=== PATIENT | male | born 1950 | race Caucasian/White ===

== ENCOUNTER 2016-08-05 15:56 | Outpatient (CLI) | payer MEDICARE, OTHER | END 2016-08-05 15:57 | disposition home or self-care (01) | DX: R97.20 Elevated prostate specific antigen [PSA] (principal) ==

== ENCOUNTER 2017-02-22 10:32 | Outpatient (CLI) | payer MEDICARE, OTHER ==
[2017-02-22 18:22] LABS: PSA FREE 0.541 ng/mL (0.16-2.81)
[2017-02-22 18:23] LABS: PSA TOTAL 3.869 ng/mL (0.000-2.000)
== END 2017-02-22 10:33 | disposition home or self-care (01) ==
LOC: LAB.F 10:32
PROVIDERS: ATTEND Internal Medicine
DX: R97.20 Elevated prostate specific antigen [PSA] (principal)
CPT/HCPCS: 36415; 84154

== ENCOUNTER 2017-06-07 07:32 | Outpatient (CLI) | payer MEDICARE, OTHER ==
[2017-06-07 13:05] LABS: BILIRUBIN,URINE NEGATIVE (NEGATIVE); GLUCOSE, URINE (UA) NEGATIVE (NEGATIVE); KETONES,URINE (UA) NEGATIVE (NEGATIVE); LEUKOCYTE ESTERASE, URINE LARGE (NEGATIVE); NITRITE,URINE NEGATIVE (NEGATIVE); OCCULT BLOOD,URINE MODERATE (NEGATIVE); PH,URINE 6.5 PH (5.0-7.5); PROTEIN,URINE 100 mg/dL (NEGATIVE); UROBILINOGEN,URINE 0.2 (NORMAL) E.U./dL (NORMAL)
[2017-06-07 13:10] LABS: CLARITY,URINE CLOUDY (CLEAR)
[2017-06-07 13:34] LABS: BASOPHILS # (AUTO) 0.1 10^3/uL (0.0-0.1); EOSINOPHILS # (AUTO) 0.3 10^3/uL (0.0-0.7); EOSINOPHILS % (AUTO) 5.9 %; HGB - HEMOGLOBIN 14.6 g/dL (14.0-18.0); LYMPHOCYTES # (AUTO) 1.6 10^3/uL (1.5-3.5); LYMPHOCYTES % (AUTO) 29.5 %; MEAN CORPUSCULAR HEMOGLOBIN 30.1 pg (27.0-31.0); MEAN CORPUSCULAR HGB CONC 33.3 g/dL (32.0-36.0); MEAN CORPUSCULAR VOLUME 90.3 fL (80.0-94.0); MEAN PLATELET VOLUME 7.8 fL (7.4-11.4); MONOCYTES # (AUTO) 0.4 10^3/uL (0.0-1.0); MONOCYTES % (AUTO) 8.1 %; NEUTROPHILS # (AUTO) 3.1 10^3/uL (1.5-6.6); NEUTROPHILS % (AUTO) 55.5 %; PLT - PLATELET COUNT 282 10^3/uL (130-450); RED BLOOD COUNT 4.85 10^6/uL (4.70-6.10); RED CELL DISTRIBUTION WIDTH 13.4 % (12.0-15.0); WHITE BLOOD COUNT 5.5 x10^3/uL (4.8-10.8)
[2017-06-07 13:35] LABS: ALBUMIN 4.2 g/dL (3.2-5.5); ALBUMIN/GLOBULIN RATIO 1.3 (1.0-2.2); ALKALINE PHOSPHATASE 61 IU/L (42-121); ALT ALANINE AMINOTRANSFERASE 14 IU/L (10-60); AST ASPARTATE AMINOTRANSFERASE 17 IU/L (10-42); BILIRUBIN,TOTAL 0.7 mg/dL (0.2-1.0); BUN - BLOOD UREA NITROGEN 16 mg/dL (6-20); CALCIUM 8.6 mg/dL (8.5-10.3); CARBON DIOXIDE - CO2 28 mmol/L (21-32); CHLORIDE 104 mmol/L (101-111); CHOL/HDL RATIO 3.4 (<5.0); CHOLESTEROL 163 mg/dL; CREATININE 0.7 mg/dL (0.6-1.2); GFR - MDRD 112 (>89); GLUCOSE 99 mg/dL (70-100); HDL CHOLESTEROL 48 mg/dL; LDL CHOLESTEROL,CALCULATED 102 mg/dL; LDL/HDL RATIO 2.1 (<3.6); SODIUM 137 mmol/L (135-145); TOTAL PROTEIN 7.4 g/dL (6.7-8.2); VLDL CHOLESTEROL 13 mg/dL
[2017-06-07 13:54] LABS: BACTERIA,URINE Moderate /HPF (None Seen); SQUAMOUS EPITHELIAL CELL,UR NONE SEEN (<= Few)
== END 2017-06-07 07:33 | disposition home or self-care (01) ==
LOC: LAB.F 07:32
PROVIDERS: ATTEND Internal Medicine
DX: E78.5 Hyperlipidemia, unspecified (principal); Z79.899 Other long term (current) drug therapy; C18.9 Malignant neoplasm of colon, unspecified; R30.0 Dysuria
CPT/HCPCS: 36415; 80053; 80061; 81001; 81003; 82378; 84443; 85025; 87086

== ENCOUNTER 2017-07-01 10:10 | Outpatient (CLI) | payer MEDICARE, OTHER | END 2017-07-01 10:11 | disposition home or self-care (01) | LOC: LAB.F 10:10 | PROVIDERS: ATTEND Internal Medicine | DX: N30.00 Acute cystitis without hematuria (principal) | CPT/HCPCS: 87086 ==

== ENCOUNTER 2017-08-25 07:23 | Outpatient (CLI) | payer MEDICARE, OTHER ==
[2017-08-25 10:54] LABS: PSA FREE 0.64 ng/mL (0.16-2.81)
[2017-08-25 10:55] LABS: PSA TOTAL 3.63 ng/mL (0.000-2.000)
== END 2017-08-25 07:24 | disposition home or self-care (01) ==
LOC: LAB.F 07:23
PROVIDERS: ATTEND Internal Medicine
DX: Z12.5 Encounter for screening for malignant neoplasm of prostate (principal); E05.90 Thyrotoxicosis, unspecified without thyrotoxic crisis or storm; R97.20 Elevated prostate specific antigen [PSA]
CPT/HCPCS: 36415; 84153; 84154; 84443

== ENCOUNTER 2018-06-30 08:55 | Outpatient (CLI) | payer MEDICARE, OTHER ==
[2018-06-30 16:31] LABS: BASOPHILS # (AUTO) 0.1 10^3/uL (0.0-0.1); BASOPHILS % (AUTO) 0.9 %; EOSINOPHILS # (AUTO) 0.2 10^3/uL (0.0-0.7); EOSINOPHILS % (AUTO) 3.7 %; HGB - HEMOGLOBIN 15.3 g/dL (14.0-18.0); LYMPHOCYTES # (AUTO) 1.6 10^3/uL (1.5-3.5); MEAN CORPUSCULAR HEMOGLOBIN 30.3 pg (27.0-31.0); MEAN CORPUSCULAR HGB CONC 33.1 g/dL (32.0-36.0); MEAN CORPUSCULAR VOLUME 91.6 fL (80.0-94.0); MEAN PLATELET VOLUME 7.8 fL (7.4-11.4); MONOCYTES # (AUTO) 0.4 10^3/uL (0.0-1.0); MONOCYTES % (AUTO) 6.5 %; NEUTROPHILS # (AUTO) 3.5 10^3/uL (1.5-6.6); NEUTROPHILS % (AUTO) 60.9 %; PLT - PLATELET COUNT 276 10^3/uL (130-450); RED BLOOD COUNT 5.04 10^6/uL (4.70-6.10); RED CELL DISTRIBUTION WIDTH 13.4 % (12.0-15.0); WHITE BLOOD COUNT 5.7 x10^3/uL (4.8-10.8)
[2018-06-30 16:49] LABS: ALBUMIN 4.2 g/dL (3.2-5.5); ALBUMIN/GLOBULIN RATIO 1.2 (1.0-2.2); ALKALINE PHOSPHATASE 76 IU/L (42-121); ALT ALANINE AMINOTRANSFERASE 14 IU/L (10-60); AST ASPARTATE AMINOTRANSFERASE 18 IU/L (10-42); BILIRUBIN,TOTAL 1.2 mg/dL (0.2-1.0); BUN - BLOOD UREA NITROGEN 15 mg/dL (6-20); CALCIUM 9.1 mg/dL (8.5-10.3); CARBON DIOXIDE - CO2 28 mmol/L (21-32); CHLORIDE 101 mmol/L (101-111); CHOL/HDL RATIO 4.2 (<5.0); CHOLESTEROL 225 mg/dL; CREATININE 0.7 mg/dL (0.6-1.2); GFR - MDRD 112 (>89); GLUCOSE 95 mg/dL (70-100); HDL CHOLESTEROL 53 mg/dL; LDL CHOLESTEROL,CALCULATED 152 mg/dL; LDL/HDL RATIO 2.9 (<3.6); SODIUM 138 mmol/L (135-145); TOTAL PROTEIN 7.8 g/dL (6.7-8.2); VLDL CHOLESTEROL 20 mg/dL
[2018-06-30 16:54] LABS: PSA FREE 0.677 ng/mL (0.16-2.81)
[2018-06-30 16:55] LABS: PSA TOTAL 3.994 ng/mL (0.000-2.000)
== END 2018-06-30 08:56 | disposition home or self-care (01) ==
LOC: LAB.F 08:55
PROVIDERS: ATTEND Internal Medicine
DX: E05.90 Thyrotoxicosis, unspecified without thyrotoxic crisis or storm (principal); E78.5 Hyperlipidemia, unspecified; R97.20 Elevated prostate specific antigen [PSA]; N20.0 Calculus of kidney; M19.90 Unspecified osteoarthritis, unspecified site
CPT/HCPCS: 36415; 80053; 80061; 83721; 84153; 84154; 84443; 85025

== ENCOUNTER 2019-07-16 08:32 | Outpatient (CLI) | payer MEDICARE, OTHER ==
[2019-07-16 10:14] LABS: HGB - HEMOGLOBIN 14.6 g/dL (14.0-18.0); MEAN CORPUSCULAR HEMOGLOBIN 29.3 pg (27.0-31.0); MEAN CORPUSCULAR HGB CONC 31.9 g/dL (32.0-36.0); MEAN CORPUSCULAR VOLUME 91.8 fL (80.0-94.0); MEAN PLATELET VOLUME 9.1 fL (7.4-11.4); RED BLOOD COUNT 4.98 10^6/uL (4.70-6.10); RED CELL DISTRIBUTION WIDTH 13.5 % (12.0-15.0); WHITE BLOOD COUNT 11.3 x10^3/uL (4.8-10.8)
[2019-07-16 10:47] LABS: ALBUMIN 3.9 g/dL (3.2-5.5); ALBUMIN/GLOBULIN RATIO 0.9 (1.0-2.2); ALKALINE PHOSPHATASE 58 IU/L (42-121); ALT ALANINE AMINOTRANSFERASE 15 IU/L (10-60); AST ASPARTATE AMINOTRANSFERASE 16 IU/L (10-42); BILIRUBIN,TOTAL 0.9 mg/dL (0.2-1.0); BUN - BLOOD UREA NITROGEN 17 mg/dL (6-20); CALCIUM 8.9 mg/dL (8.5-10.3); CARBON DIOXIDE - CO2 26 mmol/L (21-32); CHLORIDE 104 mmol/L (101-111); CHOL/HDL RATIO 3.5 (<5.0); CHOLESTEROL 184 mg/dL; CREATININE 0.7 mg/dL (0.6-1.2); CRP - C-REACTIVE PROTEIN 9.8 mg/dL (0-1.0); GFR - MDRD 112 (>89); GLUCOSE 103 mg/dL (70-100); HDL CHOLESTEROL 52 mg/dL; LDL CHOLESTEROL,CALCULATED 116 mg/dL; LDL/HDL RATIO 2.2 (<3.6); SODIUM 140 mmol/L (135-145); TOTAL PROTEIN 8.1 g/dL (6.7-8.2); VLDL CHOLESTEROL 16 mg/dL
[2019-07-16 10:50] LABS: PSA FREE 0.58 ng/mL (0.16-2.81); PSA TOTAL 2.91 ng/mL (0.000-2.000)
== END 2019-07-16 08:33 | disposition home or self-care (01) ==
LOC: LAB.S 08:32
PROVIDERS: ATTEND Internal Medicine
DX: E78.5 Hyperlipidemia, unspecified (principal); Z12.5 Encounter for screening for malignant neoplasm of prostate; M25.50 Pain in unspecified joint
CPT/HCPCS: 36415; 80053; 80061; 83721; 84153; 84154; 84550; 85027; 85651; 86038; 86140; 86200

== ENCOUNTER 2019-07-25 09:49 | Outpatient (CLI) | payer MEDICARE, OTHER ==
[2019-07-25 17:21] LABS: HGB - HEMOGLOBIN 13.4 g/dL (14.0-18.0); MEAN CORPUSCULAR HEMOGLOBIN 28.3 pg (27.0-31.0); MEAN CORPUSCULAR VOLUME 91.1 fL (80.0-94.0); MEAN PLATELET VOLUME 9.6 fL (7.4-11.4); RED BLOOD COUNT 4.74 10^6/uL (4.70-6.10); RED CELL DISTRIBUTION WIDTH 12.8 % (12.0-15.0); WHITE BLOOD COUNT 8.2 x10^3/uL (4.8-10.8)
[2019-07-25 18:14] LABS: RHEUMATOID FACTOR NEGATIVE (Negative)
== END 2019-07-25 09:50 | disposition home or self-care (01) ==
LOC: LAB.S 09:49
PROVIDERS: ATTEND Internal Medicine
DX: M25.50 Pain in unspecified joint (principal)
CPT/HCPCS: 36415; 85027; 85651; 86038; 86140; 86200; 86430

== ENCOUNTER 2019-09-20 09:46 | Outpatient (CLI) | payer MEDICARE, OTHER | END 2019-09-20 09:47 | disposition home or self-care (01) | LOC: LAB 09:46 | PROVIDERS: ATTEND Internal Medicine | DX: M35.3 Polymyalgia rheumatica (principal) | CPT/HCPCS: 36415; 85651 ==

== ENCOUNTER 2019-10-23 09:48 | Outpatient (CLI) | payer MEDICARE, OTHER | END 2019-10-23 09:49 | disposition home or self-care (01) | LOC: LAB 09:48 | PROVIDERS: ATTEND Internal Medicine | DX: M35.3 Polymyalgia rheumatica (principal) | CPT/HCPCS: 36415; 85651 ==

== ENCOUNTER 2019-12-11 09:06 | Outpatient (CLI) | payer MEDICARE, OTHER | END 2019-12-11 09:07 | disposition home or self-care (01) | LOC: LAB.S 09:06 | PROVIDERS: ATTEND Internal Medicine | DX: M35.3 Polymyalgia rheumatica (principal) | CPT/HCPCS: 36415; 85651 ==

== ENCOUNTER 2020-02-14 10:31 | Outpatient (CLI) | payer MEDICARE, OTHER | END 2020-02-14 10:32 | disposition home or self-care (01) | LOC: LAB.S 10:31 | PROVIDERS: ATTEND Internal Medicine | DX: M35.3 Polymyalgia rheumatica (principal) | CPT/HCPCS: 36415; 85651 ==

== ENCOUNTER 2020-08-12 09:15 | Outpatient (CLI) | payer MEDICARE, OTHER ==
[2020-08-12 15:11] LABS: BASOPHILS % (AUTO) 0.6 %; EOSINOPHILS # (AUTO) 0.2 10^3/uL (0.0-0.7); EOSINOPHILS % (AUTO) 2.9 %; HCT - HEMATOCRIT 46.5 % (42.0-52.0); HGB - HEMOGLOBIN 14.7 g/dL (14.0-18.0); LYMPHOCYTES # (AUTO) 1.6 10^3/uL (1.5-3.5); LYMPHOCYTES % (AUTO) 23.7 %; MEAN CORPUSCULAR HEMOGLOBIN 29.9 pg (27.0-31.0); MEAN CORPUSCULAR HGB CONC 31.6 g/dL (32.0-36.0); MEAN CORPUSCULAR VOLUME 94.5 fL (80.0-94.0); MONOCYTES # (AUTO) 0.3 10^3/uL (0.0-1.0); MONOCYTES % (AUTO) 4.7 %; NEUTROPHILS # (AUTO) 4.6 10^3/uL (1.5-6.6); NEUTROPHILS % (AUTO) 67.8 %; PLT - PLATELET COUNT 386 10^3/uL (130-450); RED BLOOD COUNT 4.92 10^6/uL (4.70-6.10); RED CELL DISTRIBUTION WIDTH 13.3 % (12.0-15.0); WHITE BLOOD COUNT 6.8 x10^3/uL (4.8-10.8)
[2020-08-12 15:51] LABS: ALBUMIN 4.3 g/dL (3.2-5.5); ALBUMIN/GLOBULIN RATIO 1.2 (1.0-2.2); ALKALINE PHOSPHATASE 60 IU/L (42-121); ALT ALANINE AMINOTRANSFERASE 16 IU/L (10-60); AST ASPARTATE AMINOTRANSFERASE 19 IU/L (10-42); BILIRUBIN,TOTAL 0.4 mg/dL (0.2-1.0); BUN - BLOOD UREA NITROGEN 17 mg/dL (6-20); CALCIUM 9.1 mg/dL (8.5-10.3); CARBON DIOXIDE - CO2 27 mmol/L (21-32); CHLORIDE 103 mmol/L (101-111); CHOL/HDL RATIO 4.2 (<5.0); CHOLESTEROL 213 mg/dL; CREATININE 0.8 mg/dL (0.6-1.2); GFR - MDRD 96 (>89); GLUCOSE 104 mg/dL (70-100); HDL CHOLESTEROL 51 mg/dL; LDL CHOLESTEROL,CALCULATED 140 mg/dL; LDL/HDL RATIO 2.7 (<3.6); POTASSIUM 4.2 mmol/L (3.5-5.0); SODIUM 136 mmol/L (135-145); TOTAL PROTEIN 7.9 g/dL (6.7-8.2); TRIGLYCERIDES 110 mg/dL; VLDL CHOLESTEROL 22 mg/dL
== END 2020-08-12 09:16 | disposition home or self-care (01) ==
LOC: LAB.S 09:15
PROVIDERS: ATTEND Internal Medicine
DX: M25.50 Pain in unspecified joint (principal); E78.5 Hyperlipidemia, unspecified; I10 Essential (primary) hypertension; R97.20 Elevated prostate specific antigen [PSA]
CPT/HCPCS: 36415; 80053; 80061; 85025; G0103; 83721; 84153

== ENCOUNTER 2020-09-01 07:00 | Outpatient (CLI) | payer MEDICARE, OTHER ==
--- NOTE | 2020-09-01 16:22 | XRAY Report ---
PROCEDURE: Knee 4 View RT INDICATIONS: R KNEE JOINT PX TECHNIQUE: 4 views of the right knee(s) were acquired. COMPARISON: None. FINDINGS: Bones: No fractures or dislocations. No suspicious bony lesions. There is moderate to severe trico mpartmental narrowing most severe laterally. Chondrocalcinosis is present. Patellar spur is present. Soft tissues: Moderate joint effusion. No suspicious soft tissue calcifications. IMPRESSION: Tricompartmental arthritic change as above. Reviewed by: Fela Jenkins MD on 09/01/2020 4:21 PM PDT Approved by: Fela Jenkins MD on 09/01/2020 4:21 PM PDT Station ID: [id number]
== END 2020-09-01 23:59 | disposition home or self-care (01) ==
LOC: DI.N 07:00
PROVIDERS: ATTEND Physician Assistant
DX: M17.11 Unilateral primary osteoarthritis, right knee (principal)

== ENCOUNTER 2020-10-31 06:23 | Day surgery (SDC) | payer MEDICARE, OTHER ==
[2020-10-31] MEDS ORDERED: LACTATED RINGERS 1,000 ML IV ONE (06:29)
[2020-10-31] MEDS ORDERED: fentaNYL 100 MCG/2 ML VIAL ONE (06:46)
[2020-10-31] MEDS ORDERED: MIDAZOLAM 2 MG/2 ML VIAL ONE (06:48)
[2020-10-31] MEDS ORDERED: PROPOFOL 200 MG/20 ML VIAL IVP ONE (06:49)
--- NOTE | 2020-10-31 07:02 | ANESTHESIA ---
Pre-Anesthesia VS, & Labs - Diagnosis screening - Procedure colonoscopy Vital Signs: Temp Pulse Resp BP Pulse Ox 36 C L 65 16 138/84 H 100 10/31/20 06:29 10/31/20 06:29 10/31/20 06:29 10/31/20 06:29 10/31/20 06:29 Height: 6 ft Weight (kg): 89.3 kg Body Mass Index: 26.6 BMI Classification: Overweight - NPO >8 hours Home Medications and Allergies Home Medications: Ambulatory Orders Prednisone [Anna] 1 mg PO DAILY 10/31/20 Ascorbic Acid [Vitamin C] 1 tab PO DAILY 10/01/15 Magnesium 1 tab PO DAILY 10/01/15 Prednisone [Anna] 1 mg PO DAILY 10/31/20 Allergies/Adverse Reactions: Allergies Allergy/AdvReac Type Severity Reaction Status Date / Time bacitracin Allergy Mild Rash Verified 09/17/15 09:14 [From Neosporin ([id number])] bacitracin zinc * Allergy Mild Rash Verified 09/17/15 09:14 [From Neosporin ([id number]-gin-rowao)] neomycin sulfate * Allergy Mild Rash Verified 09/17/15 09:14 [From Neosporin (uyi-ufg-wwnzt)] polymyxin B Allergy Mild Rash Verified 09/17/15 09:14 [From Neosporin ([id number]-mrj-cfgvf)] Anes History & Medical History - Anesthetic History Anesthesia Complications: reports: No previous complications Family history of Anesthesia Complications: Denies Family history of Malignant Hyperthermia: Denies - Medical History Cardiovascular: reports: None Pulmonary: reports: None Gastrointestinal: reports: None Urinary: reports: Kidney stones Musculoskeletal: reports: None Endocrine/Autoimmune: reports: None Skin: reports: None - Surgical History Urologic: reports: Ureterolithotomy (stones) Exam General: Alert, Oriented x3, Cooperative Dental: WNL Mouth Openin Fingerbreadth Neck Mobility: Normal Mallampati classification: II Thyromental Distance: 4-6 cm Respiratory: Lungs clear, Normal breath sounds, No respiratory distress Cardiovascular: Regular rate Neurological: Normal speech Mental/Cognitive Status: Alert/Oriented X3, Normal for patient Cognitive Status: Within normal limits Plan Anesthesia Type: Total IV Consent for Procedure(s) Verified and Reviewed: Yes Code Status: Attempt Resuscitation ASA classification: 2-Mild systemic disease Is this case an emergency?: No
--- NOTE | 2020-10-31 07:19 | HISTORY & PHYSICAL EXAMINATION ---
Chief Complaint - Chief Complaint Chief Complaint: history colon polyps History of Present Illness - History Obtained From Records Reviewed: yes History obtained from: pt Exam Limitations: none - History of Present Illness HPI Comment/Other: History of colon polyps. last colonoscopy about 8 years ago History - Past Medical History Cardiovascular: reports: None Respiratory: reports: None Endocrine/Autoimmune: reports: None GI: reports: None : reports: Kidney stones HEENT: reports: None Psych: reports: None Musculoskeletal: reports: None Derm: reports: None MRSA Hx?: No Meds/Allgy - Home Medications Home Medications: Ambulatory Orders Medication Instructions Recorded Confirmed Ascorbic Acid [Vitamin C] 1 tab PO DAILY 10/01/15 10/31/20 Magnesium 1 tab PO DAILY 10/01/15 10/31/20 Prednisone [Anna] 1 mg PO DAILY 10/31/20 10/31/20 - Allergies Allergies/Adverse Reactions: Allergies Allergy/AdvReac Type Severity Reaction Status Date / Time bacitracin Allergy Mild Rash Verified 09/17/15 09:14 [From Neosporin (yms-[id number]-[id number])] bacitracin zinc * Allergy Mild Rash Verified 09/17/15 09:14 [From Neosporin ([id number]-ybw-[id number])] neomycin sulfate * Allergy Mild Rash Verified 09/17/15 09:14 [From Neosporin (lbh-bru-lezvz)] polymyxin B Allergy Mild Rash Verified 09/17/15 09:14 [From Neosporin (nir-adh-xlijf)] Review of Systems - Other Findings Other Findings: 10 pt ros as above otherwise unremarkable Exam - Vital Signs Reviewed Vital Signs: Yes Vital Signs: Vital Signs x48h Temp Pulse Resp BP Pulse Ox 10/31/20 06:29 36 C L 65 16 138/84 H 100 - Physical Exam General Appearance: positive: Alert Eyes Bilateral: positive: PERRL, EOMI ENT: positive: No signs of dehydration Neck: positive: No JVD Respiratory: positive: No respiratory distress, Breath sounds nml Cardiovascular: positive: Regular rate & rhythm Abdomen: positive: Non-tender, No distention Neurologic/Psychiatric: positive: Oriented x3 Conclusion/Plan - Problem List (1) History of adenomatous polyp of colon Conclusion/Plan: plan colonoscopy. parq held and consent obtained
[2020-10-31] MEDS ORDERED: LACTATED RINGERS 350 ML IV ONE (07:54)
[2020-10-31 08:26] VITALS: BP 127/95
--- NOTE | 2020-10-31 08:39 | ANESTHESIA POST OP EVALUATION ---
Anesthesia Post Eval - Post Anesthesia Eval Vitals: Last Vital Signs Temp 36.5 C 10/31/20 08:15 Pulse 69 10/31/20 08:15 Resp 16 10/31/20 08:15 BP 127/95 H 10/31/20 08:15 Pulse Ox 99 10/31/20 08:15 CV Function Including HR & BP: Stable Pain Control: Satisfactory Nausea & Vomiting: Negative Mental Status: Baseline Respiratory Status: Airway Patent Hydration Status: Satisfactory Anesthesia Complications: None
== END 2020-10-31 06:24 | disposition home or self-care (01) ==
LOC: SDS 06:23
PROVIDERS: ATTEND Surgery
PROC: 0DBP8ZX Excision of Rectum, Via Natural or Artificial Opening Endoscopic, Diagnostic (ICD-10-PCS; principal; 2020-10-31 07:30)
DX: Z12.11 Encounter for screening for malignant neoplasm of colon (principal); K62.1 Rectal polyp; E66.3 Overweight; Z68.26 Body mass index [BMI] 26.0-26.9, adult
CPT/HCPCS: 45380; J7120

== ENCOUNTER 2021-01-16 08:05 | Outpatient (CLI) | payer MEDICARE, OTHER | END 2021-01-16 08:06 | disposition home or self-care (01) | LOC: LAB.S 08:05 | PROVIDERS: ATTEND Internal Medicine | DX: R97.20 Elevated prostate specific antigen [PSA] (principal) | CPT/HCPCS: 36415; 84153 ==

== ENCOUNTER 2021-02-24 10:28 | Outpatient (CLI) | payer MEDICARE, OTHER ==
[2021-02-24 14:52] LABS: BASOPHILS # (AUTO) 0.1 10^3/uL (0.0-0.1); BASOPHILS % (AUTO) 0.8 %; EOSINOPHILS # (AUTO) 0.2 10^3/uL (0.0-0.7); EOSINOPHILS % (AUTO) 3.2 %; HCT - HEMATOCRIT 44.7 % (42.0-52.0); HGB - HEMOGLOBIN 14.3 g/dL (14.0-18.0); MEAN CORPUSCULAR HEMOGLOBIN 29.8 pg (27.0-31.0); MEAN CORPUSCULAR VOLUME 93.1 fL (80.0-94.0); MEAN PLATELET VOLUME 9.2 fL (7.4-11.4); MONOCYTES # (AUTO) 0.4 10^3/uL (0.0-1.0); MONOCYTES % (AUTO) 5.8 %; NEUTROPHILS # (AUTO) 3.4 10^3/uL (1.5-6.6); NEUTROPHILS % (AUTO) 55.9 %; PLT - PLATELET COUNT 379 10^3/uL (130-450); RED CELL DISTRIBUTION WIDTH 13.4 % (12.0-15.0)
[2021-02-24 15:13] LABS: ALBUMIN 4.3 g/dL (3.2-5.5); ALBUMIN/GLOBULIN RATIO 1.1 (1.0-2.2); BILIRUBIN,TOTAL 0.5 mg/dL (0.2-1.0); CALCIUM 9.2 mg/dL (8.5-10.3); CREATININE 0.9 mg/dL (0.6-1.2); TOTAL PROTEIN 8.1 g/dL (6.7-8.2)
[2021-02-24 15:22] LABS: CREATININE,URINE 108.3 mg/dL; MICROALBUMIN,URINE 18.3 mg/dL (0-300.0)
[2021-02-24 20:25] LABS: ESTIMATED AVERAGE GLUCOSE 105 mg/dL (70-100); HEMOGLOBIN A1c% 5.3 % (4.27-6.07)
== END 2021-02-24 10:29 | disposition home or self-care (01) ==
LOC: LAB.S 10:28
PROVIDERS: ATTEND Internal Medicine
DX: Z01.812 Encounter for preprocedural laboratory examination (principal)
CPT/HCPCS: 36415; 80053; 82043; 82570; 83036; 85025

== ENCOUNTER 2021-02-27 08:00 | Outpatient (CLI) | payer MEDICARE, OTHER | END 2021-02-27 23:59 | disposition home or self-care (01) | LOC: LAB.F 08:00 | PROVIDERS: ATTEND Internal Medicine | DX: Z53.9 Procedure and treatment not carried out, unspecified reason (principal) ==

== ENCOUNTER 2021-03-18 09:48 | Day surgery (SDC) | payer MEDICARE, OTHER ==
[2021-03-18] MEDS ORDERED: ACETAMINOPHEN 500 MG TABLET PO ONE (09:56)
[2021-03-18] MEDS ORDERED: CELECOXIB 100 MG CAPSULE PO ONE (09:57)
[2021-03-18] MEDS ORDERED: CEFAZOLIN SODIUM IN 0.9 % NACL 2 GM/100 ML BAG IV ONE (09:57)
[2021-03-18] MEDS ORDERED: DEXAMETHASONE 10 MG/ML VIAL ONE (09:57)
[2021-03-18] MEDS ORDERED: BUPIVACAINE 0.25% PF 30 ML VIAL ONE (11:12)
[2021-03-18] MEDS ORDERED: KETOROLAC 30 MG/ML VIAL ONE (11:12)
[2021-03-18] MEDS ORDERED: VANCOMYCIN 1 GM VIAL ONE (11:12)
[2021-03-18] MEDS ORDERED: LIDOCAINE 2%-EPI 1:100000 20 ML MDV ONE (11:12)
[2021-03-18] MEDS ORDERED: DOCUSATE SODIUM 100 MG CAPSULE PO PRN (11:28)
[2021-03-18] MEDS ORDERED: MORPHINE 2 MG/ML CARPUJECT IVP PRN ×2 (11:28→12:01)
[2021-03-18] MEDS ORDERED: SODIUM CHLORIDE FLUSH 0.9% 10 ML SYRINGE IVP PRN (11:28)
[2021-03-18] MEDS ORDERED: ONDANSETRON 4 MG/2 ML VIAL IVP PRN ×2 (11:28→12:01)
[2021-03-18] MEDS ORDERED: LIDOCAINE-MPF 2% 5 ML VIAL ONE (11:33)
[2021-03-18] MEDS ORDERED: TRANEXAMIC ACID 1,000 MG/10 ML VIAL ONE (11:33)
[2021-03-18] MEDS ORDERED: ONDANSETRON 4 MG/2 ML VIAL ONE (11:33)
[2021-03-18] MEDS ORDERED: MIDAZOLAM 2 MG/2 ML VIAL ONE (11:34)
[2021-03-18] MEDS ORDERED: PROPOFOL 500 MG/50 ML 500 MG/50 ML VIAL ONE ×2 (11:34→13:05)
[2021-03-18] MEDS ORDERED: BUPIVACAINE 0.5% PF 10 ML VIAL ONE (11:34)
[2021-03-18] MEDS ORDERED: fentaNYL 100 MCG/2 ML VIAL ONE (11:34)
[2021-03-18] MEDS ORDERED: NS W/20 MEQ KCL 1,000 ML IV SCH (12:00)
[2021-03-18] MEDS ORDERED: NALOXONE 0.4 MG/ML VIAL IVP PRN (12:01)
[2021-03-18] MEDS ORDERED: fentaNYL 100 MCG/2 ML VIAL IVP PRN (12:01)
[2021-03-18] MEDS ORDERED: HYDROmorphone 0.5 MG/0.5 ML SYRINGE IVP PRN (12:01)
[2021-03-18] MEDS ORDERED: ePHEDrine 50 MG/ML VIAL IVP PRN (12:01)
[2021-03-18] MEDS ORDERED: ATROPINE ABBOJECT 1 MG/10 ML SYRINGE IVP PRN (12:01)
[2021-03-18] MEDS ORDERED: METOCLOPRAMIDE 10 MG/2 ML VIAL IVP PRN (12:01)
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
[2021-03-18] MEDS ORDERED: LACTATED RINGERS 1,000 ML IV SCH (13:00)
[2021-03-18] MEDS ORDERED: VANCOMYCIN 1 GM VIAL MC ONE (13:01)
[2021-03-18] MEDS ORDERED: BUPIVACAINE 0.25% PF 30 ML VIAL SUBQ ONE (13:02)
[2021-03-18] MEDS ORDERED: KETOROLAC 30 MG/ML VIAL IVP ONE (13:02)
[2021-03-18] MEDS ORDERED: LIDOCAINE 2%-EPI 1:100000 20 ML MDV SUBQ ONE (13:05)
[2021-03-18] MEDS ORDERED: DEXAMETHASONE 4 MG/ML VIAL ONE (13:38)
[2021-03-18] MEDS ORDERED: ROPIVACAINE 0.5% PF 20 ML AMPULE ONE ×2 (13:38→13:42)
[2021-03-18] MEDS ORDERED: ceFAZolin 2 GM in SODIUM CHLORIDE 0.9% 100ML 100 ML IV SCH (14:00)
[2021-03-18] MEDS ORDERED: PROPOFOL 200 MG/20 ML VIAL IVP ONE ×2 (14:43→15:07)
--- NOTE | 2021-03-18 15:06 | OPERATIVE REPORT ---
Operative Report - General Procedure Date: 03/18/21 Planned Procedure: right total knee arthroplasty Pre-Op Diagnosis: Valgus osteoarthritis right knee Procedure Performed: Right total knee replacement: [employer] by cruciate stabilized journey 2 Oxinium #6 femoral component, #7 nonporous tibial baseplate, 9 mm articular insert, 32 mm Meme II biconvex patellar component with cement to all components Post Op Diagnosis: Right total knee replacement: [employer] by cruciate stabilized journey - Procedure Note Primary Surgeon: Renato Linton MD Secondary Surgeon: Bjorn BUTLER Anesthesia Provider: Juliana Ac CRNA Anesthesia Technique: Regional block, Spinal Estimated Blood Loss (mL): 250 Indications: This is a 71-year-old gentleman with activity related pain right knee interfering with activities of daily living AndespeciallyActivities that he enjoys. He has global pain but greatest over the lateral aspect of his right knee. He has tried nonoperative treatment and has had progressive knee pain. His radiographs show complete loss of joint space to lateral compartment with osteophytes, sclerosis. Findings: He had eburnated bone surfaces to lateral compartment, mild articular cartilage loss to medial compartment, moderate articular cartilage loss to patella. He had a nonspecific synovitis within the knee joint.He had a valgus deformity to his right knee. Complications: None - Other Other Information/Narrative: The patient was brought to the operating room and was placed in a supine position. She was given a adductor canal block by anesthesia. A pneumatic tourniquet was applied to the proximal right thigh over cast padding. This was a conical shaped Jaswinder thigh tourniquet that was sterile. An adjustable leg h older, Arthrex trimano,was placed on the operating room table to facilitate knee flexion of the right knee during surgery. A timeout procedure was performed by the entire operating room team and all were in agreement. A midline longitudinal incision was made with the knee in flexion. A medial parapatellar arthrotomy was made. The anterior horn of medial and lateral menisci were released and part of patellar fat pad was excised. The knee was flexed and the patella was dislocated laterally. A drill hole was made in the intramedullary notch with a 9.5 mm drill. Osteophytes about the proximal tibia and femur had been removed with a rongeur. The distal femoral cutting guide was aligned parallel to the posterior condyles. The intramedullary daniel and guide was advanced and the distal femoral guide was stabilized with half pins. The distal 5 degrees valgus cut was made through the distal femoral guide. Next the extra medullary tibial guide was assembled and applied and aligned to the mechanical axis in both sagittal and coronal planes. Tibial referencing was done to allow 2 mm of bone from the most affected side and 9 mm from the least affected side. The tibial guide was stabilized with half pins. Retractors were placed medially and laterally to protect the collateral ligaments and a retractor was placed directly against the posterior bone to sublux the tibia anteriorly. A [employer] precision 8 saw was used to make the tibial proximal cut. The tibial block was removed as a single piece and the menisci were removed as well. The extension gap was assessed with a extension block spacer using a 10 mm spacer and this was found to fit well as well as the 9 mm spacer block with the knee in 90 degrees of flexion. Next the femoral positioning guide was applied and aligned to the epicondylar axis and Bran line. This was secured in place with approximately 4 degrees of external rotation. The size of the femur at the anterior lateral trochlea was a #5. Drill holes were made in the 5 and 1 #6 cutting block was inserted and secured. The 5 cuts were made to the captured block using oscillating saw. The femoral trial was applied, fit very well,. The intercondylar notch was removed with reamers and box osteotome.The flexion gap was assessed with the 10 mm spacer and was found to fit well. The patella was then prepared. A 26 mm biconvex patellar reamer was used. The tibial trial #7 was then applied to the tibia and aligned to the mechanical axis. The drill and punch fin was utilized. Trial reduction was performed with the femoral and tibial components in place. Pulsatile lavage was performed. A tourniquet was applied during the cementing process. The components were inserted sequentially: Tibia, femur and lastly patellar component. Drill holes were made in medial lateral femoral condyles to the trial. Excess cement was removed and the knee was placed in extension during the hardening. Dilute Betadine irrigation was performed. The knee had full range of motion, good patellar tracking. There was good stability of the knee in full extension mid flexion and 90 degrees of flexion. There was good alignment of the right knee. The tourniquet had been deflated and had been in place for 30 minutes. Hemostasis was achieved with electrocautery. Vancomycin powder 2 g were inserted in the arthrotomy prior to deep closure. The deep closure was performed with #2 Ethibond proximal and distal to the patella with the knee in 40 degrees of flexion. #1 stratofix suture was then used to close the arthrotomy incision. 2-0 Stratofix was used to close the subcutaneous tissue. 3-0 Monocryl was used to do a subcuticular skin closure. Dermabond was applied to the skin incision. After the Dermabond had hardened, a silver impregnated dressing was applied. She tolerated the procedure well and received 2 g of Ancef intravenously and 2 g of tranexamic acid. A assistant professor of physics was utilized during the procedure and was found to be necessary component to help with exposure, protection of vital structures and closure. Second environmental emergencies assistant, Bjorn Asif PA-C also was available to provide retraction exposure.
[2021-03-18] MEDS ORDERED: LACTATED RINGERS 1,000 ML IV ONE (15:45)
--- NOTE | 2021-03-18 16:14 | ANESTHESIA POST OP EVALUATION ---
Anesthesia Post Eval - Post Anesthesia Eval Vitals: Last Vital Signs Temp 36.5 C 03/18/21 16:11 Pulse 69 03/18/21 16:11 Resp 14 03/18/21 16:11 BP 130/83 H 03/18/21 16:11 Pulse Ox 100 03/18/21 16:11 CV Function Including HR & BP: Stable Pain Control: Satisfactory Nausea & Vomiting: Negative Mental Status: Baseline Respiratory Status: Airway Patent Hydration Status: Satisfactory Anesthesia Complications: None
--- NOTE | 2021-03-18 16:18 | XRAY Report ---
PROCEDURE: Knee 2 View RT INDICATIONS: Postop TECHNIQUE: 2 views of the right knee(s) were acquired. COMPARISON: September 01, 2020. FINDINGS: BONES/JOINT: No acute, displaced fracture or dislocation. Tricompartment arthroplasty without evidenc e of compromise. SOFT TISSUES: Postoperative changes, most prominent in the patellofemoral compartment. IMPRESSION: 1.No significant abnormality. Reviewed by: Aaron Michelle MD on 03/18/2021 4:16 PM PDT Approved by: Aaron Michelle MD on 03/18/2021 4:16 PM PDT Station ID: [id number]
[2021-03-18] MEDS: ACETAMINOPHEN 500 MG TABLET PO SCH ×2 (17:04→18:25)
[2021-03-18] MEDS: CEFAZOLIN SODIUM IN 0.9 % NACL 2 GM/100 ML BAG IV SCH (17:14)
[2021-03-18] MEDS: SODIUM CHLORIDE FLUSH 0.9% 10 ML SYRINGE IVP SCH (17:14)
[2021-03-18 17:18] LABS: BASOPHILS % (AUTO) 0.3 %; EOSINOPHILS % (AUTO) 0.1 %; HCT - HEMATOCRIT 41.3 % (42.0-52.0); HGB - HEMOGLOBIN 13.5 g/dL (14.0-18.0); LYMPHOCYTES # (AUTO) 0.5 10^3/uL (1.5-3.5); LYMPHOCYTES % (AUTO) 6.8 %; MEAN CORPUSCULAR HEMOGLOBIN 30.3 pg (27.0-31.0); MEAN CORPUSCULAR HGB CONC 32.7 g/dL (32.0-36.0); MEAN CORPUSCULAR VOLUME 92.8 fL (80.0-94.0); MEAN PLATELET VOLUME 8.9 fL (7.4-11.4); MONOCYTES # (AUTO) 0.1 10^3/uL (0.0-1.0); MONOCYTES % (AUTO) 0.6 %; NEUTROPHILS # (AUTO) 7.2 10^3/uL (1.5-6.6); NEUTROPHILS % (AUTO) 91.9 %; PLT - PLATELET COUNT 283 10^3/uL (130-450); RED BLOOD COUNT 4.45 10^6/uL (4.70-6.10); RED CELL DISTRIBUTION WIDTH 13.5 % (12.0-15.0); WHITE BLOOD COUNT 7.8 x10^3/uL (4.8-10.8)
--- NOTE | 2021-03-18 17:18 | CONSULTATION NOTE ---
Referring Provider Name of Referring Provider:: Dr. Carr Consult Date: 03/18/21 Chief Complaint - Chief Complaint Chief Complaint: right knee pain History of Present Illness - Admitted From Admitted From:: Medical floor - History Obtained From Records Reviewed: [facility] History obtained from: Patient Exam Limitations: No - History of Present Illness HPI Comment/Other: This is a 71-years old male, Who just had right total knee arthroplasty by Orthopedic surgeon. Medical team was consulted for medical management for this patient by surgeon. Patient reported he had a history of kidney stone which needed twice hospitalization. Now he just had Right Total knee replaced. he has no pain on his right knee now. He denies chest pain, headache, shortness of breath. Patient is hemodynamically stable now. History - Past Medical History Cardiovascular: reports: None Respiratory: reports: None Endocrine/Autoimmune: reports: None GI: reports: Colon polyps : reports: Kidney stones HEENT: reports: Chronic vision loss Psych: reports: None Musculoskeletal: reports: Osteoarthritis Derm: reports: None MRSA Hx?: No - Past Surgical History General: reports: Colonoscopy Meds/Allgy - Home Medications Home Medications: Ambulatory Orders Medication Instructions Recorded Confirmed Magnesium 1 tab PO DAILY 10/01/15 03/18/21 - Allergies Allergies/Adverse Reactions: Allergies Allergy/AdvReac Type Severity Reaction Status Date / Time bacitracin Allergy Mild Rash Verified 09/17/15 09:14 [From Neosporin ([id number]-qgl-hccal)] bacitracin zinc * Allergy Mild Rash Verified 09/17/15 09:14 [From Neosporin ([id number])] neomycin sulfate * Allergy Mild Rash Verified 03/13/21 15:05 [From Neosporin ([id number]-[id number])] polymyxin B Allergy Mild Rash Verified 09/17/15 09:14 [From Neosporin (xiz-bka-fsxco)] Review of Systems - Constitutional Constitutional: denies: Fever, Chills - Eyes Eyes: denies: Pain - Ears, Nose & Throat Ears, Nose & Throat: denies: Ear pain, Nosebleeds - Cardiovascular Cariovascular: denies: Palpitations, Chest pain, Exertional dyspnea, Decr. exercise tolerance - Respiratory Respiratory: denies: Cough, Wheezing, SOB at rest, SOB with exertion - Gastrointestinal Gastrointestinal: denies: Abdominal pain, Diarrhea, Nausea, Vomiting - Genitourinary Genitourinary: denies: Dysuria - Musculoskeletal Musculoskeletal: denies: Muscle pain, Muscle aches - Integumentary Integumentary: denies: Rash - Neurological Neurological: denies: General weakness, Focal weakness, Headache, Dizziness, Numbness, Abnormal gait, Seizures, Incoordination, Slurred speech - Psychiatric Psychiatric: denies: Depression Exam - Vital Signs Vital Signs: Vital Signs x48h Temp Pulse Pulse Resp BP BP Pulse Ox 03/18/21 16:45 36.2 C L 66 16 121/76 100 03/18/21 16:27 57 L 13 124/76 97 03/18/21 16:20 72 18 108/73 100 03/18/21 16:16 60 13 114/71 100 03/18/21 16:11 36.5 C 69 14 130/83 H 100 03/18/21 16:05 58 L 16 101/90 H 100 03/18/21 16:00 67 16 121/78 99 03/18/21 15:56 75 15 99/79 97 03/18/21 15:51 73 15 115/79 100 03/18/21 15:45 36.4 C L 75 16 115/75 98 03/18/21 10:09 36.5 C 62 18 131/68 H 100 - Physical Exam General Appearance: positive: No acute distress, Alert. negative: Lethargic Eyes Bilateral: positive: Normal inspection, PERRL, No lid inflammation ENT: positive: ENT inspection nml, No signs of dehydration. negative: Purulent nasal drainage Neck: positive: Nml inspection, Trachea midline. negative: Thyromegaly, Tracheal deviation Respiratory: positive: Chest non-tender, No respiratory distress, Breath sounds nml. negative: Wheezes Cardiovascular: positive: Regular rate & rhythm, No murmur. negative: Ta chycardia, Bradycardia, Systolic murmur, Diastolic murmur Peripheral Pulses: positive: 2+ Abdomen: positive: Non-tender, Nml bowel sounds, No distention. negative: Tenderness Back: positive: Nml inspection Skin: positive: Color nml, Warm, Dry. negative: Cyanosis Extremities: positive: Non-tender, Nml appearance. negative: Calf tenderness Neurologic/Psychiatric: positive: Oriented x3, Motor nml, Sensation nml, Mood/affect nml. negative: Weakness, Sensory loss, Facial droop, Slurred/abnml speech, Depressed mood/affect Conclusion/Plan - Problem List (1) Osteoarthritis Conclusion/Plan: pt has hx of osteoarthritis with right knee pain. pt had right total knee art hroplasty done by orthopedics surgeon on today. We will continue pain control and we will continue PT and OT. (2) Status post total right knee replacement Conclusion/Plan: s/p right total knee replacement. continue pain control. DVT prophylaxis per surgeon, pt is on Aspirin twice daily now, order lab monitor for pt. order Covid 19 for R/O. Continue PT and OT, Consult with social work for disposition planning, Expected patient will be discharged to home tomorrow by surgeon. (3) Hypophosphatemia Conclusion/Plan: phosphorus is 2.2, replaced with K-phosphorus, continue lab monitor - Lab Results Fish Bones: 03/18/21 17:10 03/18/21 17:10
[2021-03-18 17:48] LABS: CALCIUM 8.9 mg/dL (8.5-10.3); CREATININE 0.8 mg/dL (0.6-1.2); PHOSPHORUS 2.2 mg/dL (2.5-4.6); POTASSIUM 4.2 mmol/L (3.5-5.0)
[2021-03-18] MEDS: NEUTRA-PHOS 250 MG TABLET PO SCH (18:26)
[2021-03-18] MEDS: oxyCODONE 5 MG TABLET PO PRN (19:52)
[2021-03-18] MEDS: ASPIRIN EC 81 MG TABLET PO SCH (20:59)
[2021-03-18] MEDS ORDERED: CELECOXIB 100 MG CAPSULE PO SCH (21:00)
[2021-03-18] MEDS: ethyl alcohoL 62% SWAB AMPULE NAS SCH (21:04)
[2021-03-18 21:06] LABS: B. PARAPERTUSSIS- RESP PCR PAN NOT DETECTED; B. PERTUSSIS- RESP PCR PANEL NOT DETECTED; C. PNEUMONIAE- RESP PCR PANEL NOT DETECTED; CORONAVIRUS 229E-RESP PCR NOT DETECTED; CORONAVIRUS HKU1-RESP PCR NOT DETECTED; CORONAVIRUS NL63-RESP PCR NOT DETECTED; CORONAVIRUS OC43-RESP PCR NOT DETECTED; HUMAN METAPNEUMOVIRUS NOT DETECTED; INFLUENZA A- RESP PCR PANEL NOT DETECTED; INFLUENZA B - RESP PCR PANEL NOT DETECTED; M. PNEUMONIAE- RESP PCR PANEL NOT DETECTED; PARAINFLUENZA VIRUS 1 NOT DETECTED; PARAINFLUENZA VIRUS 2 NOT DETECTED; PARAINFLUENZA VIRUS 3 NOT DETECTED; PARAINFLUENZA VIRUS 4 NOT DETECTED; RHINOVIRUS/ENTEROVIRUS NOT DETECTED; RSV- RESP PCR PANEL NOT DETECTED; SARS-CoV-2 -RESP PCR PANEL NOT DETECTED
[2021-03-19] MEDS: ACETAMINOPHEN 500 MG TABLET PO SCH ×3 (00:20→11:51)
[2021-03-19] MEDS: SODIUM CHLORIDE FLUSH 0.9% 10 ML SYRINGE IVP SCH ×2 (00:21→10:45)
[2021-03-19] MEDS ORDERED: ceFAZolin 1 GM VIAL ONE (02:11)
[2021-03-19] MEDS: CEFAZOLIN SODIUM IN 0.9 % NACL 2 GM/100 ML BAG IV SCH (02:13)
[2021-03-19] MEDS: oxyCODONE 5 MG TABLET PO PRN ×2 (02:16→08:43)
[2021-03-19 06:02] LABS: BASOPHILS % (AUTO) 0.2 %; HCT - HEMATOCRIT 37.4 % (42.0-52.0); HGB - HEMOGLOBIN 12.6 g/dL (14.0-18.0); LYMPHOCYTES # (AUTO) 1.1 10^3/uL (1.5-3.5); LYMPHOCYTES % (AUTO) 6.3 %; MEAN CORPUSCULAR HEMOGLOBIN 30.7 pg (27.0-31.0); MEAN CORPUSCULAR HGB CONC 33.7 g/dL (32.0-36.0); MEAN CORPUSCULAR VOLUME 91.2 fL (80.0-94.0); MEAN PLATELET VOLUME 9.2 fL (7.4-11.4); MONOCYTES # (AUTO) 0.8 10^3/uL (0.0-1.0); MONOCYTES % (AUTO) 4.5 %; NEUTROPHILS # (AUTO) 16.1 10^3/uL (1.5-6.6); NEUTROPHILS % (AUTO) 88.7 %; PLT - PLATELET COUNT 285 10^3/uL (130-450); RED CELL DISTRIBUTION WIDTH 13.2 % (12.0-15.0); WHITE BLOOD COUNT 18.1 x10^3/uL (4.8-10.8)
[2021-03-19 06:19] LABS: CALCIUM 8.4 mg/dL (8.5-10.3); CREATININE 0.7 mg/dL (0.6-1.2); MAGNESIUM 1.7 mg/dL (1.7-2.8); PHOSPHORUS 3.2 mg/dL (2.5-4.6); POTASSIUM 4.2 mmol/L (3.5-5.0)
--- NOTE | 2021-03-19 08:34 | PROVIDER PROGRESS NOTE ---
Subjective - General Procedure Date: 03/18/21 Post Op Days: 1 Procedure Performed: Right TKA - Review of Systems Wound/Incisions: positive: Other (Small less than quarter size spot of blood drainage seen through bandage otherwise bandages dry and intact) General: negative: Fever, Chills Gastrointestinal: negative: Nausea, Vomiting Genitourinary: positive: Hematuria Musculoskeletal: positive: Joint pain, Joint swelling - Other Other Information/Narrative: Patient is a 71-year-old male with a history including hypertension hyperlipidemia who is postop day 1 right TKA performed by Dr Renato Linton at [facility] on 03/18/2021. A slightly traumatic urinary catheterization during operative preparation, most likely a pre-existing stricture. His urine cleared quickly and has no further signs or symptoms. Objective - Patient Data Vital Signs: Vital Signs x48h Temp Pulse Resp BP Pulse Ox 03/19/21 07:41 36.4 C L 75 16 121/70 95 03/19/21 05:54 36.3 C L 73 14 119/69 95 Weight: Weight 03/17/21 03/18/21 03/19/21 23:59 23:59 23:59 Weight (kg) 91 kg Intake & Output: Intake and Output Totals x24h 03/17/21 03/18/21 03/19/21 23:59 23:59 23:59 Intake Total 840 1967 Output Total 1675 1275 Balance -835 692 - Lab Results Lab Results: 03/19/21 05:51 03/19/21 05:51 Other Lab Results: Lab Results x24hrs 03/19/21 03/19/21 03/18/21 Range/Units 05:51 05:51 20:00 WBC 18.1 H (4.8-10.8) x10^3/uL RBC 4.10 L (4.70-6.10) 10^6/uL Hgb 12.6 L (14.0-18.0) g/dL Hct 37.4 L (42.0-52.0) % MCV 91.2 (80.0-94.0) fL MCH 30.7 (27.0-31.0) pg MCHC 33.7 (32.0-36.0) g/dL RDW 13.2 (12.0-15.0) % Plt Count 285 (130-450) 10^3/uL MPV 9.2 (7.4-11.4) fL Neut # (Auto) 16.1 H (1.5-6.6) 10^3/uL Lymph # (Auto) 1.1 L (1.5-3.5) 10^3/uL [place] # (Auto) 0.8 (0.0-1.0) 10^3/uL Eos # (Auto) 0.0 (0.0-0.7) 10^3/uL Baso # (Auto) 0.0 (0.0-0.1) 10^3/uL Absolute Nucleated RBC 0.00 x10^3/uL Nucleated RBC % 0.0 /100WBC Sodium 138 (135-145) mmol/L Potassium 4.2 (3.5-5.0) mmol/L Chloride 105 (101-111) mmol/L Carbon Dioxide 23 (21-32) mmol/L Anion Gap 10.0 (6-13) BUN 15 (6-20) mg/dL Creatinine 0.7 (0.6-1.2) mg/dL Estimated GFR (MDRD) 111 (>89) Glucose 133 H (70-100) mg/dL Calcium 8.4 L (8.5-10.3) mg/dL Phosphorus 3.2 (2.5-4.6) mg/dL Magnesium 1.7 (1.7-2.8) mg/dL Nasal Adenovirus (PCR) NOT DETECTED Nasal B. parapertussis DNA (PCR) NOT DETECTED Nasal Coronavir 229E PCR NOT DETECTED Nasal Coronavir HKU1 PCR NOT DETECTED Nasal Coronavir NL63 PCR NOT DETECTED Nasal Coronavir OC43 PCR NOT DETECTED Nasal Enterovir/Rhinovir PCR NOT DETECTED Nasal Influenza B PCR NOT DETECTED Nasal Influenza A PCR NOT DETECTED Nasal Parainfluen 1 PCR NOT DETECTED Nasal Parainfluen 2 PCR NOT DETECTED Nasal Parainfluen 3 PCR NOT DETECTED Nasal Parainfluen 4 PCR NOT DETECTED Nasal RSV (PCR) NOT DETECTED Nasal B.pertussis DNA PCR NOT DETECTED Nasal C.pneumoniae (PCR) NOT DETECTED Alfredo Human Metapneumo PCR NOT DETECTED Nasal M.pneumoniae (PCR) NOT DETECTED Nasal SARS-CoV-2 (PCR) NOT DETECTED 03/18/21 03/18/21 Range/Units 17:10 17:10 WBC 7.8 (4.8-10.8) x10^3/uL RBC 4.45 L (4.70-6.10) 10^6/uL Hgb 13.5 L (14.0-18.0) g/dL Hct 41.3 L (42.0-52.0) % MCV 92.8 (80.0-94.0) fL MCH 30.3 (27.0-31.0) pg MCHC 32.7 (32.0-36.0) g/dL RDW 13.5 (12.0-15.0) % Plt Count 283 (130-450) 10^3/uL MPV 8.9 (7.4-11.4) fL Neut # (Auto) 7.2 H (1.5-6.6) 10^3/uL Lymph # (Auto) 0.5 L (1.5-3.5) 10^3/uL [place] # (Auto) 0.1 (0.0-1.0) 10^3/uL Eos # (Auto) 0.0 (0.0-0.7) 10^3/uL Baso # (Auto) 0.0 (0.0-0.1) 10^3/uL Absolute Nucleated RBC 0.00 x10^3/uL Nucleated RBC % 0.0 /100WBC Sodium 141 (135-145) mmol/L Potassium 4.2 (3.5-5.0) mmol/L Chloride 106 (101-111) mmol/L Carbon Dioxide 26 (21-32) mmol/L Anion Gap 9.0 (6-13) BUN 16 (6-20) mg/dL Creatinine 0.8 (0.6-1.2) mg/dL Estimated GFR (MDRD) 95 (>89) Glucose 123 H (70-100) mg/dL Calcium 8.9 (8.5-10.3) mg/dL Phosphorus 2.2 L (2.5-4.6) mg/dL Magnesium 2.0 (1.7-2.8) mg/dL Nasal Adenovirus (PCR) Nasal B. parapertussis DNA (PCR) Nasal Coronavir 229E PCR Nasal Coronavir HKU1 PCR Nasal Coronavir NL63 PCR Nasal Coronavir OC43 PCR Nasal Enterovir/Rhinovir PCR Nasal Influenza B PCR Nasal Influenza A PCR Nasal Parainfluen 1 PCR Nasal Parainfluen 2 PCR Nasal Parainfluen 3 PCR Nasal Parainfluen 4 PCR Nasal RSV (PCR) Nasal B.pertussis DNA PCR Nasal C.pneumoniae (PCR) Alfredo Human Metapneumo PCR Nasal M.pneumoniae (PCR) Nasal SARS-CoV-2 (PCR) - Imaging Results Radiology Imaging: positive: EMP read indepedently (Postop films of the right knee Show total joint replacement surgical changes with no apparent hardware loosening good anatomical alignment.) - Current Medications Current Medications: Current Medications Generic Name Dose Route Start Last Admin Trade Name Freq PRN Reason Stop Dose Admin Acetaminophen 1,000 mg 03/18/21 12:00 03/19/21 06:21 Acetaminophen 500 Mg Tablet PO 1,000 mg Q6HR YUE Administration Alcohol 1 amp 03/18/21 21:00 03/18/21 21:04 Ethyl Alcohol 62% Swab Ampule ALRFEDO 1 amp BID YUE Administration Aspirin 81 mg 03/18/21 21:00 03/18/21 20:59 Aspirin Ec 81 Mg Tablet PO 81 mg BID YUE Administration Oxycodone HCl 5 mg 03/18/21 11:28 03/19/21 02:16 Oxycodone 5 Mg Tablet PO 5 mg Q6HR PRN Administration PAIN Sodium Chloride 10 ml 03/18/21 17:00 03/19/21 00:21 Sodium Chloride Flush 0.9% 10 Ml Syringe IVP Not Given 0100,0900,1700 COUNT INCLUDES THE [facility] Sodium Phosphate 250 mg 03/18/21 18:00 03/18/21 18:26 Neutra-Phos 250 Mg Tablet PO 250 mg TIDWM YUE Administration - Physical Exam Wound/Incisions: positive: Other (Dressing is a small less than quarter size drainage of blood. Rest the dressing dry and intact) General Appearance: positive: No acute distress Respiratory: positive: No respiratory distress Skin: positive: Color nml, No rash, Warm, Dry Extremities: positive: Joint swelling (Neurovascularly intact right lower limb) ABX Reporting Has patient been on IV antibiotics over the past 48 hours?: Yes Impression/Plan - Problem List Problem List: Patient Is a 71-year-old male who is postop day 1 a right TKA [place] Renato Velarde [facility]. Patient has no signs or symptoms of infection his pain is well controlled. Small amount of bloody drainage is acceptable and has stopped. Dressing is not need to be changed at this point. Patient has yet to receive some PT OT he should get a few sessions today and we are anticipating successful completion of those for him to be safely discharged home. He is cleared to be discharged home from surgical standpoint. Patient is to receive PT and an outpatient he is ambulating in a front wheel walker and to weight-bear as tolerated on right knee.
--- NOTE | 2021-03-19 08:41 | Discharge Plan ---
Discharge Plan Problem Reviewed?: Yes Disposition: Home, Self Care Activity Restrictions: Wt Bearing as Tolerated Shower Restrictions: Yes (Avoid showering for 72 hours after 74 hours you may shower) Driving Restrictions: Yes (Do not operate a motor vehicle until surgical plan) Assistance Devices: Walker Weight Bearing: Partial Weight Additional Instructions or Follow Up instructions: You had a total knee arthroplasty or knee replacement on the right only performed by Dr Renato Linton at [facility] yesterday on 03/18/2021. You can weight- bear as much as tolerated on your right knee using a front wheeled walker. Please take your scheduled pain medications of Tylenol And tramadol regardless of pain, refer to the chart given to you at the total joint camp for further details. Use the 5 mg of oxycodone for breakthrough pain greater than 8 out of 10 every 4-6 hours. It is recommended you take a tablet of oxycodone an hour before bedtime the initial 4-5 nights after surgery to promote sleep. You are to take 81 mg of aspirin twice a day for 6 weeks for blood clot prevention. You will have your first follow-up appointment next week at the [address] [facility] or orthopedic clinic. Use ice and do not excessively bend the knee or place pillows directly under the knee to inadvertently bend or flex the knee these initial 6 weeks. No Smoking: If you smoke, Please STOP! Call for help. Follow-up with: Gama Graves MD [Primary Care Provider] -
[2021-03-19] MEDS: ASPIRIN EC 81 MG TABLET PO SCH (08:43)
[2021-03-19] MEDS: NEUTRA-PHOS 250 MG TABLET PO SCH (08:43)
[2021-03-19] MEDS: ethyl alcohoL 62% SWAB AMPULE NAS SCH (08:44)
--- NOTE | 2021-03-19 08:58 | PHARMACY PROGRESS NOTE ---
- Best Possible Medication History Admit Date and Time: Processed by: Nursing Medication History completed: Yes Patient Interview: Completed As the person ultimately responsible for medication therapy, providers are able to order a medication from an existing home medication list in [facility] via the "Reconcile Routine" prior to Confirmation of that medication by windows server support technician. Such practice is discouraged except when the physician, in their clinical judgment, deems that a medical need exists for a medication without regard to previous use.
[2021-03-19 11:01] LABS: HCT - HEMATOCRIT 37.8 % (42.0-52.0); HGB - HEMOGLOBIN 12.6 g/dL (14.0-18.0)
[2021-03-19 11:09] LABS: INR 1.3 (0.8-1.2)
[2021-03-19 13:48] VITALS: BP 116/84
== END 2021-03-19 12:17 | disposition home or self-care (01) ==
LOC: SDS 09:48 → MS2 16:44 → SDS 03-19 12:17
PROVIDERS: ATTEND Orthopaedic Surgery
DX: M17.11 Unilateral primary osteoarthritis, right knee (principal); I10 Essential (primary) hypertension; E78.5 Hyperlipidemia, unspecified; E83.39 Other disorders of phosphorus metabolism; Z20.822 Contact with and (suspected) exposure to COVID-19
CPT/HCPCS: 27447; 36415; 73560; 80048; 83735; 84100; 85014; 85018; 85025; 85610; 87631; 97110; 97162; 97165; A9270; C1713; J0690; J3370; J7120; 0202U

== ENCOUNTER 2021-04-28 09:30 | Outpatient (CLI) | payer MEDICARE, OTHER ==
--- NOTE | 2021-04-28 12:58 | XRAY Report ---
PROCEDURE: Knee 4 View RT INDICATIONS: TKA, RIGHT TECHNIQUE: 4 views of the right knee(s) were acquired. COMPARISON: 03/18/2021, 09/01/2020. FINDINGS: Bones: Patient is status post prior right total knee arthroplasty with anatomic right knee alignment . No gross hardware loosening or failure. No acute fractures or dislocations. No suspicious bony les ions. Soft tissues: No joint effusion. No suspicious soft tissue calcifications. IMPRESSION: Anatomic right knee alignment. No gross hardware complication. No fracture or dislocatio n. Reviewed by: Yung Pacheco MD on 04/28/2021 12:56 PM PST Approved by: Yung Pacheco MD on 04/28/2021 12:56 PM PST Station ID: [id number]
== END 2021-04-28 23:59 | disposition home or self-care (01) ==
LOC: DI.N 09:30
PROVIDERS: ATTEND Orthopaedic Surgery
DX: Z96.651 Presence of right artificial knee joint (principal)

== ENCOUNTER 2022-03-23 08:00 | Outpatient (CLI) | payer MEDICARE, OTHER ==
--- NOTE | 2022-03-23 10:04 | XRAY Report ---
PROCEDURE: Knee 4 View RT INDICATIONS: RIGHT TOTAL KNEE TECHNIQUE: 4 views of the right knee(s) were acquired. COMPARISON: 04/28/2021, 03/18/2021 and 09/01/2020. FINDINGS: Bones: Patient is status post right total knee arthroplasty. Right knee alignment is anatomic. No fr actures or dislocations. No gross hardware loosening or failure. No suspicious bony lesions. Soft tissues: No joint effusion. No suspicious soft tissue calcifications. IMPRESSION: Prior right total knee arthroplasty with anatomic right knee alignment. No gross hardwar e complication. No gross soft tissue abnormalities. Reviewed by: Yung Pacheco MD on 03/23/2022 10:03 AM PDT Approved by: Yung Pacheco MD on 03/23/2022 10:03 AM PDT Station ID: [id number]
== END 2022-03-23 23:59 | disposition home or self-care (01) ==
LOC: DI.WOS 08:00
PROVIDERS: ATTEND Orthopaedic Surgery
DX: Z09 Encounter for follow-up examination after completed treatment for conditions other than malignant neoplasm (principal); Z96.651 Presence of right artificial knee joint

== ENCOUNTER 2022-06-24 08:00 | Outpatient (CLI) | payer MEDICARE, OTHER | END 2022-06-24 23:59 | disposition home or self-care (01) | LOC: LAB.S 08:00 | PROVIDERS: ATTEND Physician Assistant Medical | DX: N39.0 Urinary tract infection, site not specified (principal) | CPT/HCPCS: 87077; 87086; 87181 ==

== ENCOUNTER 2022-07-13 08:00 | Outpatient (CLI) | payer MEDICARE, OTHER | END 2022-07-13 23:59 | disposition home or self-care (01) | LOC: LAB.N 08:00 | PROVIDERS: ATTEND Registered Nurse | DX: N39.0 Urinary tract infection, site not specified (principal); N40.0 Benign prostatic hyperplasia without lower urinary tract symptoms | CPT/HCPCS: 87077; 87086; 87181 ==

== ENCOUNTER 2022-08-23 08:00 | Outpatient (CLI) | payer MEDICARE, OTHER | END 2022-08-23 23:59 | disposition home or self-care (01) | LOC: LAB 08:00 | PROVIDERS: ATTEND Physician Assistant Medical | DX: N39.0 Urinary tract infection, site not specified (principal) | CPT/HCPCS: 87077; 87086; 87181 ==

== ENCOUNTER 2022-09-27 08:00 | Outpatient (CLI) | payer MEDICARE, OTHER | END 2022-09-27 23:59 | disposition home or self-care (01) | LOC: LAB 08:00 | PROVIDERS: ATTEND Physician Assistant | DX: N39.0 Urinary tract infection, site not specified (principal); N41.9 Inflammatory disease of prostate, unspecified | CPT/HCPCS: 87077; 87086; 87181 ==

== ENCOUNTER 2022-11-08 09:12 | Outpatient (CLI) | payer MEDICARE, OTHER ==
[2022-11-08 09:27] LABS: BASOPHILS # (AUTO) 0.1 10^3/uL (0.0-0.1); BASOPHILS % (AUTO) 1.2 %; EOSINOPHILS # (AUTO) 0.2 10^3/uL (0.0-0.7); EOSINOPHILS % (AUTO) 3.9 %; HCT - HEMATOCRIT 47.6 % (42.0-52.0); HGB - HEMOGLOBIN 15.3 g/dL (14.0-18.0); LYMPHOCYTES # (AUTO) 1.8 10^3/uL (1.5-3.5); LYMPHOCYTES % (AUTO) 37.8 %; MEAN CORPUSCULAR HEMOGLOBIN 29.3 pg (27.0-31.0); MEAN CORPUSCULAR HGB CONC 32.1 g/dL (32.0-36.0); MEAN CORPUSCULAR VOLUME 91.2 fL (80.0-94.0); MEAN PLATELET VOLUME 8.7 fL (7.4-11.4); MONOCYTES # (AUTO) 0.4 10^3/uL (0.0-1.0); MONOCYTES % (AUTO) 8.3 %; NEUTROPHILS # (AUTO) 2.4 10^3/uL (1.5-6.6); NEUTROPHILS % (AUTO) 48.6 %; PLT - PLATELET COUNT 344 10^3/uL (130-450); RED BLOOD COUNT 5.22 10^6/uL (4.70-6.10); RED CELL DISTRIBUTION WIDTH 13.4 % (12.0-15.0); WHITE BLOOD COUNT 4.8 x10^3/uL (4.8-10.8)
[2022-11-08 09:52] LABS: ALBUMIN 4.3 g/dL (3.2-5.5); ALBUMIN/GLOBULIN RATIO 1.1 (1.0-2.2); ALKALINE PHOSPHATASE 61 IU/L (42-121); ALT ALANINE AMINOTRANSFERASE 15 IU/L (10-60); AST ASPARTATE AMINOTRANSFERASE 18 IU/L (10-42); BILIRUBIN,TOTAL 0.7 mg/dL (0.2-1.0); BUN - BLOOD UREA NITROGEN 15 mg/dL (6-20); CALCIUM 8.8 mg/dL (8.5-10.3); CARBON DIOXIDE - CO2 27 mmol/L (21-32); CHLORIDE 108 mmol/L (101-111); CHOL/HDL RATIO 4.1 (<5.0); CHOLESTEROL 214 mg/dL; CREATININE 0.8 mg/dL (0.6-1.2); GFR - MDRD 95 (>89); GLUCOSE 110 mg/dL (70-100); HDL CHOLESTEROL 52 mg/dL; LDL CHOLESTEROL,CALCULATED 137 mg/dL; LDL/HDL RATIO 2.6 (<3.6); POTASSIUM 4.2 mmol/L (3.5-5.0); SODIUM 142 mmol/L (135-145); TOTAL PROTEIN 8.2 g/dL (6.7-8.2); TRIGLYCERIDES 127 mg/dL; VLDL CHOLESTEROL 25 mg/dL
--- NOTE | 2022-11-08 10:40 | XRAY Report ---
PROCEDURE: Thoracic Spine 3 View INDICATIONS: DDD LUMBAR SPINE TECHNIQUE: 3 views of the thoracic spine were acquired. COMPARISON: None. FINDINGS: Bones: Mild degenerative changes with mostly multilevel disc space height loss. No definite acute jhonny tebral body height loss or traumatic subluxation. Partially seen moderate cervical degenerative changes. Soft tissues: No suspicious calcifications. IMPRESSION: No acute radiographic abnormality. Mild degenerative changes. If there is high concern for further de rangement, consider MRI evaluation. Reviewed by: Trell Macias MD on 11/08/2022 10:38 AM PDT Approved by: Trell Macias MD on 11/08/2022 10:38 AM PDT Station ID: [id number]
--- NOTE | 2022-11-08 10:42 | XRAY Report ---
PROCEDURE: Lumbar Spine 3 views INDICATIONS: DDD LUMBAR SPINE TECHNIQUE: 3 views of the lumbar spine were acquired. COMPARISON: None. FINDINGS: Bones: No acute vertebral body height loss. Minor endplate deformities may be degenerative. There is 6 to 7 mm of right lateral listhesis of L3 on L4. Moderate degenerative changes, particularly from L3 to S1, with facet arthropathy and disc space heig ht loss. There is also osteophyte formation. Soft tissues: Calcification measuring 2.5 cm projecting over the left lower renal fossa. There are va scular calcifications. IMPRESSION: Moderate degenerative changes particularly in the mid and lower lumbar spine. If there is high concer n for further derangement, consider MRI evaluation. Calcification in the left abdomen measuring 2.5 cm projecting over the left kidney, possibly a large stone Reviewed by: Trell Macias MD on 11/08/2022 10:41 AM PDT Approved by: Trell Macias MD on 11/08/2022 10:41 AM PDT Station ID: [id number]
--- NOTE | 2022-11-08 15:19 | Ultrasound Report ---
PROCEDURE: Aorta Screening INDICATIONS: DDD LUMBAR SPINE TECHNIQUE: Real time scanning was performed of the aorta and iliac arteries, with image documentatio n. COMPARISON: None. FINDINGS: Aorta: Proximal aortic diameter measures 2.9 cm. Mid-aorta measures 2.8 cm. Distal aortic diameter is 2.1 cm. Iliac arteries: Right common iliac artery measures 1.2 cm. Left common iliac artery measures 1.3 cm . Mild calcification and plaque noted involving the mid to distal aorta IMPRESSION: Atherosclerotic calcification without evidence of aneurysm Reviewed by: Kwame Pacheco MD on 11/08/2022 2:18 PM AKDT Approved by: Kwame Pacheco MD on 11/08/2022 2:18 PM AKDT Station ID: [id number]
== END 2022-11-08 09:13 | disposition home or self-care (01) ==
LOC: DI 09:12
PROVIDERS: ATTEND Nurse Practitioner Acute Care
DX: M51.36 Other intervertebral disc degeneration, lumbar region (principal); R97.20 Elevated prostate specific antigen [PSA]; Z13.6 Encounter for screening for cardiovascular disorders; Z12.5 Encounter for screening for malignant neoplasm of prostate; Z13.228 Encounter for screening for other metabolic disorders; Z13.220 Encounter for screening for lipoid disorders; Z13.29 Encounter for screening for other suspected endocrine disorder; Z13.0 Encounter for screening for diseases of the blood and blood-forming organs and certain disorders involving the immune mechanism; I70.0 Atherosclerosis of aorta; M47.814 Spondylosis without myelopathy or radiculopathy, thoracic region; M47.816 Spondylosis without myelopathy or radiculopathy, lumbar region; M47.817 Spondylosis without myelopathy or radiculopathy, lumbosacral region; R19.00 Intra-abdominal and pelvic swelling, mass and lump, unspecified site
CPT/HCPCS: 36415; 72072; 72100; 76706; 80053; 80061; 84443; 85025; G0103; 83721; 84153

== ENCOUNTER 2022-11-17 13:47 | Outpatient (CLI) | payer MEDICARE, OTHER ==
[2022-11-17 13:54] LABS: BILIRUBIN,URINE NEGATIVE (NEGATIVE); GLUCOSE, URINE (UA) NEGATIVE (NEGATIVE); KETONES,URINE (UA) NEGATIVE (NEGATIVE); LEUKOCYTE ESTERASE, URINE MODERATE (NEGATIVE); NITRITE,URINE NEGATIVE (NEGATIVE); OCCULT BLOOD,URINE TRACE-INTA (NEGATIVE); PROTEIN,URINE TRACE mg/dL (NEGATIVE); UROBILINOGEN,URINE 0.2 (NORMAL) E.U./dL (NORMAL)
[2022-11-17 13:59] LABS: CLARITY,URINE SL. CLOUDY (CLEAR)
[2022-11-17 14:15] LABS: BACTERIA,URINE Few /HPF (None Seen); RBC,URINE 0-5 /HPF (0-5); SQUAMOUS EPITHELIAL CELL,UR FEW Squamous (<= Few); WBC,URINE >25 /HPF (0-3)
== END 2022-11-17 13:48 | disposition home or self-care (01) ==
LOC: LAB 13:47
PROVIDERS: ATTEND Urology
DX: R35.0 Frequency of micturition (principal)
CPT/HCPCS: 81001; 87077; 87086; 87181

== ENCOUNTER 2022-12-03 07:26 | Outpatient (CLI) | payer MEDICARE, OTHER ==
[2022-12-03 07:41] LABS: BILIRUBIN,URINE NEGATIVE (NEGATIVE); GLUCOSE, URINE (UA) NEGATIVE (NEGATIVE); KETONES,URINE (UA) NEGATIVE (NEGATIVE); LEUKOCYTE ESTERASE, URINE SMALL (NEGATIVE); NITRITE,URINE NEGATIVE (NEGATIVE); OCCULT BLOOD,URINE SMALL (NEGATIVE); PROTEIN,URINE 100 mg/dL (NEGATIVE); UROBILINOGEN,URINE 0.2 (NORMAL) E.U./dL (NORMAL)
[2022-12-03 07:52] LABS: BACTERIA,URINE Few /HPF (None Seen); CLARITY,URINE SL. CLOUDY (CLEAR); SQUAMOUS EPITHELIAL CELL,UR RARE Squamous (<= Few); WBC,URINE >25 /HPF (0-3)
--- NOTE | 2022-12-03 10:19 | CT Report ---
PROCEDURE: ABDOMEN/PELVIS WO INDICATIONS: CLUSTER OF LEFT RENAL FOSSA TECHNIQUE: A CT scan of the abdomen and pelvis was performed without the use of intravenous contrast. Images we re recorded and evaluated at appropriate window settings. Reformats: coronal and sagittal. For radiat ion dose reduction, the following was used: automated exposure control, adjustment of mA and/or kV ac cording to patient size. COMPARISON: Lumbar spine x-ray dated 11/08/2022 FINDINGS: Image quality: Excellent. Lung bases and heart: Patchy perivascular airspace disease in the left lower lobe. No pleural effusio n. The heart size is normal. No pericardial effusion. No hiatal hernia. Liver: Normal given lack of IV contrast. Gallbladder and biliary tree: Normal. Spleen: No splenomegaly. Pancreas: No pancreatic ductal dilation. Adrenals: No adrenal nodule. Kidneys and ureters: There are several bilateral renal calculi. There is a large pelvic calcification in the left kidney as seen by plain film measuring 2.3 x 1.5 x 2.0 cm there is mild surrounding para pelvic inflammation. Hounsfield units of this calcification are 1446. There is a dilated left lower p ole calyx containing a cluster of small dependent calcifications. There are at least 4 other nonobstr ucting left intrarenal calculi. There are several, at least 5 punctate, nonobstructing right intraren al calculi. There are probably a few right renal cortical cysts. No hydronephrosis. Mild proximal lef t hydroureter with periureteric inflammation. The mid and distal left ureter are decompressed. Mild u reteral dilatation at the UVJ but no calculi. The right ureter is normal. Bowel and peritoneum: Stomach and small bowel are normal. The colon is within normal limits. Lymph nodes: No central or retroperitoneal adenopathy. Vessels: Normal caliber vasculature. Moderate abdominal aortic calcification. PELVIS Reproductive organs: Prostatomegaly. Partially imaged right hydrocele. Bladder: Normal wall thickness. No bladder calculi. Pelvic lymph nodes: No pelvic adenopathy by size criteria. Bones: No aggressive osseous abnormality. Other: No significant ventral or inguinal hernia. IMPRESSION: 1. 2.3 cm staghorn calcification centrally in the left renal pelvis causing mild surrounding inflamma tory change. 2. There are several bilateral nonobstructing retained intrarenal calculi. 3. Mild dilatation inflammation of the proximal left ureter may indicate a recently passed calculus o r chronic ureteral irritation. 4. Prostatomegaly. 5. Acute appearing airspace disease at the left lower lobe. Correlate with auscultative findings and possible recent respiratory tract infection. Reviewed by: Darya De MD on 12/03/2022 9:18 AM JANICE Approved by: Darya De MD on 12/03/2022 9:18 AM JANICE Station ID: [id number]
== END 2022-12-03 07:27 | disposition home or self-care (01) ==
LOC: DI 07:26
PROVIDERS: ATTEND Nurse Practitioner Acute Care
DX: N20.0 Calculus of kidney (principal); N40.0 Benign prostatic hyperplasia without lower urinary tract symptoms; R91.8 Other nonspecific abnormal finding of lung field; R35.0 Frequency of micturition
CPT/HCPCS: 81001; 87086

== ENCOUNTER 2023-01-10 07:58 | Day surgery (SDC) | payer MEDICARE, OTHER ==
[~2023-01-10 07:58] MED LIST: LIDOCAINE JELLY 2% 6 ML JEL.PF.APP ONE; iohexoL-240 10 ML VIAL IVP ONE
[2023-01-10] MEDS ORDERED: fentaNYL 100 MCG/2 ML VIAL ONE (08:20)
[2023-01-10] MEDS ORDERED: LACTATED RINGERS 1,000 ML IV ONE ×2 (08:20→10:18)
[2023-01-10] MEDS ORDERED: PROPOFOL 500 MG/50 ML 500 MG/50 ML VIAL ONE (08:20)
[2023-01-10] MEDS ORDERED: ONDANSETRON 4 MG/2 ML VIAL ONE (08:23)
[2023-01-10] MEDS ORDERED: NALOXONE 0.4 MG/ML VIAL IVP PRN (08:35)
[2023-01-10] MEDS ORDERED: fentaNYL 100 MCG/2 ML VIAL IVP PRN (08:35)
[2023-01-10] MEDS ORDERED: ATROPINE ABBOJECT 1 MG/10 ML SYRINGE IVP PRN (08:35)
[2023-01-10] MEDS ORDERED: MORPHINE 2 MG/ML CARPUJECT IVP PRN (08:35)
[2023-01-10] MEDS ORDERED: METOCLOPRAMIDE 10 MG/2 ML VIAL IVP PRN (08:35)
[2023-01-10] MEDS ORDERED: ONDANSETRON 4 MG/2 ML VIAL IVP PRN ×2 (08:35→10:17)
[2023-01-10] MEDS ORDERED: HYDROmorphone 0.5 MG/0.5 ML SYRINGE IVP PRN (08:35)
[2023-01-10] MEDS ORDERED: ePHEDrine 50 MG/ML VIAL IVP PRN (08:35)
--- NOTE | 2023-01-10 08:35 | ANESTHESIA ---
Pre-Anesthesia VS, & Labs - Diagnosis nephrolithiasis - Procedure L laser lithotripsy Vital Signs: Temp Pulse Resp BP Pulse Ox O2 Flow Rate 36.5 C 76 14 136/80 H 100 01/10/23 08:02 01/10/23 08:02 01/10/23 08:02 01/10/23 08:02 01/10/23 08:02 Height: 6 ft Weight (kg): 75.6 kg Body Mass Index: 22.6 BMI Classification: Normal - NPO >8 hours Home Medications and Allergies Home Medications: Ambulatory Orders HYDROcod/ACETAM 5/325 [[place] 5/325] 1 - 2 tablet PO Q6H PRN 01/04/23 Magnesium 1 tab PO DAILY 10/01/15 HYDROcod/ACETAM 5/325 [[place] 5/325] 1 - 2 tablet PO Q6H PRN 01/04/23 Allergies/Adverse Reactions: Allergies Allergy/AdvReac Type Severity Reaction Status Date / Time bacitracin Allergy Mild Rash Verified 09/17/15 09:14 [From Neosporin ([id number])] bacitracin zinc * Allergy Mild Rash Verified 09/17/15 09:14 [From Neosporin ([id number])] neomycin sulfate * Allergy Mild Rash Verified 03/13/21 15:05 [From Neosporin ([id number])] polymyxin B Allergy Mild Rash Verified 09/17/15 09:14 [From Neosporin ([id number])] Anes History & Medical History - Anesthetic History Anesthesia Complications: reports: No previous complications Family history of Anesthesia Complications: Denies Family history of Malignant Hyperthermia: Denies - Medical History Cardiovascular: reports: High cholesterol Pulmonary: reports: None, Other (chronic cough) Gastrointestinal: reports: Colon polyps Urinary: reports: Benign prostate hypertrophy, Kidney stones Neuro: reports: None Musculoskeletal: reports: Osteoarthritis Endocrine/Autoimmune: reports: None Skin: reports: None - Surgical History General: reports: Colonoscopy Urologic: reports: Ureterolithotomy (stones) Orthopedic: reports: Knee replacement Exam General: Alert, Oriented x3, Cooperative Dental: WNL Mouth Openin Fingerbreadth Neck Mobility: Normal Mallampati classification: I Thyromental Distance: 4-6 cm Respiratory: Lungs clear Cardiovascular: Regular rate Plan Anesthesia Type: General Consent for Procedure(s) Verified and Reviewed: Yes Code Status: Attempt Resuscitation ASA classification: 2-Mild systemic disease Is this case an emergency?: No
[2023-01-10] MEDS ORDERED: PROPOFOL 200 MG/20 ML VIAL IVP ONE ×2 (08:46→09:23)
[2023-01-10] MEDS ORDERED: LACTATED RINGERS 1,000 ML IV SCH (09:00)
[2023-01-10] MEDS ORDERED: ceFAZolin 1 GM VIAL ONE (09:18)
[2023-01-10] MEDS ORDERED: iohexoL-240 10 ML VIAL IVP ONE (09:25)
[2023-01-10] MEDS ORDERED: LIDOCAINE 2% URO-JET 5 ML SYRINGE UR ONE (09:26)
[2023-01-10] MEDS ORDERED: HYDROcod/ACETAM 5/325 MG TABLET PO PRN (10:17)
--- NOTE | 2023-01-10 10:24 | Discharge Plan ---
Discharge Plan Problem Reviewed?: Yes Disposition: Home, Self Care Condition: Good Prescriptions: Docusate Sodium 100Mg Capsule [Colace 100Mg Capsule] 100 mg PO ONCE #21 cap HYDROcod/ACETAM 5/325 [Viola 5/325] 1 tab PO Q4H PRN #15 tablet PRN Reason: Pain Diet: Regular Activity Restrictions: No Restrictions Instruction Topics: Stents Ureteral Additional Instructions or Follow Up instructions: It is normal to have increased frequency and urgency of urination after this procedure while stent in place You will see blood in the urine occasionally while stent in place Call for fever >100.4, inability to urinate You still have kidney stones, and will need at least one more procedure to remove them, you will be contacted to schedule this No Smoking: If you smoke, Please STOP! Call for help. Follow-up with: Kayleigh Raymond ARNP [Primary Care Provider] -
--- NOTE | 2023-01-10 10:30 | OPERATIVE REPORT ---
Operative Report - General Procedure Date: 01/10/23 Planned Procedure: Cystoscopy, left ureteroscopy, laser lithotripsy and stent Pre-Op Diagnosis: Left kidney stone Procedure Performed: Cystoscopy, left ureteroscopy, laser lithotripsy, left retrograde pyelogram, stent Post Op Diagnosis: Left kidney stone - Procedure Note Primary Surgeon: Jhonatan Anesthesia Technique: General LMA Pathology: none Estimated Blood Loss (mL): 10 Indications: Large left renal stone and pain Findings: >2cm large left radioopaque stone, about half dusted away Narrow left UVJ Trilobar prostate Complications: None - Other Other Information/Narrative: After informed consent was obtained the patient was brought to the OR and laid in the supine position at that point time the patient was anesthetized per anesthesia protocols. He was then prepped and draped in the usual sterile fashion. A formal timeout was performed and the patient procedure and laterality were reconfirmed. A spot fluoroscopy showed a very large left renal stone over 2 cm in size. Using a 22 Liberian cystoscope this was advanced easily into the urinary bladder. He was noted to have trilobar hypertrophy of his prostate. His bladder had moderate trabeculations. He is ureteral orifices are orthotopic in nature but were quite narrow. It was difficult to gain access to the ureter required an angled Glidewire as he had some J hooking of his distal ureter. We also found that it was difficult for the wire to enter the renal pelvis. I advanced a 5 Liberian ureteral catheter over the wire to the proximal ureter and performed a gentle retrograde pyelogram which confirmed access to the kidney via a narrow channel at the left UPJ. After some trial and error we are able to get a Glidewire past this and passed the stone up into the kidney. We then switched the Glidewire for a sensor wire. And placed a second wire up into the kidney. Using 11 x 13 ureteral access sheath, his ureter was sequentially dilated and the sheath was advanced up into the proximal ureter. A flexible ureteroscope was then advanced through the UPJ into the kidney where a very large crystalline yellow stone was seen. Using a 200 m laser fiber at a power of 1.5 and a rate of 12 we dusted the stone into very small fragments. After about 45 minutes of dusting we cleared probably just over half of the stone. Given the length of the case and the remaining stone we decided to conclude the procedure at that time. He was always planned to have a second procedure, I suspect we will be able to clear the rest the stone after a second procedure. We then cleared the ureter from any other stones and placed a 6 Liberian 26 cm double-J ureteral stent with good curling noted in the kidney and good curling noted in the bladder. His bladder was emptied and a Uro-Jet was performed. The patient was reversed from anesthesia per anesthesia protocols and brought to the PACU that further incident. All surgical counts were correct. He will r eturn in 2 to 3 weeks for a repeat ureteroscopy laser lithotripsy.
[2023-01-10] MEDS ORDERED: HYDROmorphone 0.5 MG/0.5 ML SYRINGE ONE (10:53)
[2023-01-10] MEDS ORDERED: HYDROcod/ACETAM 5/325 MG TABLET ONE (11:14)
[2023-01-10 11:33] VITALS: BP 122/89; O2SAT 98
--- NOTE | 2023-01-10 15:33 | ANESTHESIA POST OP EVALUATION ---
Anesthesia Post Eval - Post Anesthesia Eval Vitals: Last Vital Signs Temp 36.0 C L 01/10/23 11:10 Pulse 76 01/10/23 11:25 Resp 14 01/10/23 11:25 BP 122/89 H 01/10/23 11:25 Pulse Ox 98 01/10/23 11:25 O2 Flow Rate CV Function Including HR & BP: Stable Pain Control: Satisfactory Nausea & Vomiting: Negative Mental Status: Baseline Respiratory Status: Airway Patent Hydration Status: Satisfactory Anesthesia Complications: None
--- NOTE | 2023-01-11 19:07 | XRAY Report ---
PROCEDURE: OR C-Arm Procedure INDICATIONS: LITHOTRIPSY FLUORO TIME: 0.5 MIN TECHNIQUE: Fluoroscopic guidance utilized for a left-sided lithotripsy. COMPARISON: None. FINDINGS: Fluoroscopy guidance utilized for a left-sided lithotripsy. IMPRESSION: Left-sided lithotripsy. Reviewed by: Jeremy Cruz on 01/11/2023 7:06 PM PDT Approved by: Jeremy Cruz on 01/11/2023 7:06 PM PDT Station ID: [id number]
== END 2023-01-10 07:59 | disposition home or self-care (01) ==
LOC: SDS 07:58
PROVIDERS: ATTEND Urology
DX: N20.0 Calculus of kidney (principal); Z87.891 Personal history of nicotine dependence
CPT/HCPCS: 52356; A9270; C1758; J1170; J7120; Q9966

== ENCOUNTER 2023-01-31 07:32 | Day surgery (SDC) | payer MEDICARE, OTHER ==
[2023-01-31] MEDS ORDERED: ceFAZolin 2 GM VIAL ONE (07:33)
[2023-01-31] MEDS ORDERED: LACTATED RINGERS 1,000 ML IV ONE ×2 (08:00→10:16)
[2023-01-31] MEDS ORDERED: LIDOCAINE 2% URO-JET 5 ML SYRINGE UR ONE ×2 (08:10→09:30)
--- NOTE | 2023-01-31 08:12 | ANESTHESIA ---
Pre-Anesthesia VS, & Labs - Diagnosis Nephrolithiasis L - Procedure L ureteroscopy, laser lithotripsy , cystoscopy Vital Signs: Temp Pulse Resp BP Pulse Ox O2 Flow Rate 36.4 C L 75 16 139/76 H 100 01/31/23 07:50 01/31/23 07:50 01/31/23 07:50 01/31/23 07:50 01/31/23 07:50 Height: 6 ft Weight (kg): 76 kg Body Mass Index: 22.7 BMI Classification: Normal - NPO >8 hours - Lab Results Lab results reviewed: Yes Home Medications and Allergies Home Medications: Ambulatory Orders Finasteride [Proscar] 5 mg ORAL DAILY 01/31/23 Tamsulosin [Flomax] 0.4 mg ORAL DAILY 01/31/23 Finasteride [Proscar] 5 mg ORAL DAILY 01/31/23 Tamsulosin [Flomax] 0.4 mg ORAL DAILY 01/31/23 Allergies/Adverse Reactions: Allergies Allergy/AdvReac Type Severity Reaction Status Date / Time bacitracin Allergy Mild Rash Verified 01/31/23 07:13 [From Neosporin ([id number])] bacitracin zinc * Allergy Mild Rash Verified 01/31/23 07:13 [From Neosporin ([id number])] neomycin sulfate * Allergy Mild Rash Verified 01/31/23 07:13 [From Neosporin ([id number])] polymyxin B Allergy Mild Rash Verified 01/31/23 07:13 [From Neosporin ([id number])] Anes History & Medical History - Anesthetic History Anesthesia Complications: reports: No previous complications Family history of Anesthesia Complications: Denies Family history of Malignant Hyperthermia: Denies - Medical History Cardiovascular: reports: High cholesterol Pulmonary: reports: None Gastrointestinal: reports: Colon polyps Urinary: reports: Benign prostate hypertrophy, Kidney stones Neuro: reports: None Musculoskeletal: reports: Osteoarthritis Endocrine/Autoimmune: reports: None Skin: reports: None History of Cancer?: No - Surgical History General: reports: Colonoscopy Urologic: reports: Ureterolithotomy (stones) Orthopedic: reports: Knee replacement Exam General: Alert, Oriented x3, Cooperative Mouth Openin Fingerbreadth Neck Mobility: Normal Mallampati classification: II Thyromental Distance: 4-6 cm Respiratory: Lungs clear, Normal breath sounds, No respiratory distress Cardiovascular: Regular rate Neurological: Normal speech Mental/Cognitive Status: Alert/Oriented X3, Normal for patient Cognitive Status: Within normal limits Plan Anesthesia Type: General Consent for Procedure(s) Verified and Reviewed: Yes Code Status: Attempt Resuscitation ASA classification: 2-Mild systemic disease Is this case an emergency?: No
[2023-01-31] MEDS ORDERED: ONDANSETRON 4 MG/2 ML VIAL IVP PRN ×2 (08:27→10:03)
[2023-01-31] MEDS ORDERED: fentaNYL 100 MCG/2 ML VIAL IVP PRN (08:27)
[2023-01-31] MEDS ORDERED: HYDROmorphone 0.5 MG/0.5 ML SYRINGE IVP PRN ×2 (08:27→10:03)
[2023-01-31] MEDS ORDERED: ATROPINE ABBOJECT 1 MG/10 ML SYRINGE IVP PRN (08:27)
[2023-01-31] MEDS ORDERED: ePHEDrine 50 MG/ML VIAL IVP PRN (08:27)
[2023-01-31] MEDS ORDERED: MORPHINE 2 MG/ML CARPUJECT IVP PRN (08:27)
[2023-01-31] MEDS ORDERED: NALOXONE 0.4 MG/ML VIAL IVP PRN (08:27)
[2023-01-31] MEDS ORDERED: METOCLOPRAMIDE 10 MG/2 ML VIAL IVP PRN (08:27)
[2023-01-31] MEDS ORDERED: MIDAZOLAM 2 MG/2 ML VIAL ONE (08:37)
[2023-01-31] MEDS ORDERED: PROPOFOL 200 MG/20 ML VIAL IVP ONE ×2 (08:38→09:25)
[2023-01-31] MEDS ORDERED: LIDOCAINE-PF 2% 10 ML AMP SUBQ ONE (08:38)
[2023-01-31] MEDS ORDERED: SODIUM CHLORIDE 0.9% 10 ML VIAL IVP ONE (08:46)
[2023-01-31] MEDS ORDERED: LACTATED RINGERS 1,000 ML IV SCH (09:00)
[2023-01-31] MEDS ORDERED: ePHEDrine 50 MG/ML VIAL IVP ONE (09:32)
[2023-01-31] MEDS ORDERED: KETOROLAC 30 MG/ML VIAL ONE (09:56)
[2023-01-31] MEDS ORDERED: ONDANSETRON 4 MG/2 ML VIAL ONE (09:56)
[2023-01-31] MEDS ORDERED: LACTATED RINGERS 100 ML IV ONE (09:59)
[2023-01-31] MEDS ORDERED: oxyCODONE 5 MG TABLET PO PRN (10:03)
--- NOTE | 2023-01-31 10:12 | Discharge Plan ---
Discharge Plan Problem Reviewed?: Yes Disposition: Home, Self Care Condition: Good Prescriptions: Docusate Sodium 100Mg Capsule [Colace 100Mg Capsule] 100 mg PO DAILY #14 cap cephALEXin [Keflex] 500 mg PO ONCE #1 cap oxyCODONE [Roxicodone] 5 mg PO Q4H PRN #15 tablet PRN Reason: Pain Diet: Regular Activity Restrictions: No Restrictions Shower Restrictions: No Driving Restrictions: No Instruction Topics: Stents Ureteral Additional Instructions or Follow Up instructions: You will be contacted for followup next week for cystoscopy and stent removal in the office next week No Smoking: If you smoke, Please STOP! Call for help. Follow-up with: Kayleigh Raymond ARNP [Primary Care Provider] -
--- NOTE | 2023-01-31 10:14 | OPERATIVE REPORT ---
Operative Report - General Planned Procedure: Cystoscopy, left ureteroscopy, laser lithotripsy, stent exchange Pre-Op Diagnosis: Left kidney stone Procedure Performed: Cystoscopy, left ureteroscopy, laser lithotripsy, stent exchange Post Op Diagnosis: Left Kidney stone - Procedure Note Primary Surgeon: Jhonatan Anesthesia Provider: LIZZY Manzanares Anesthesia Technique: General LMA Pathology: Left renal stone Estimated Blood Loss (mL): 3 Indications: Large left renal stone Findings: Large stone, about 1.5cm in size dusted well, no more radioopaque stones seen Complications: None - Other Other Information/Narrative: After informed consent was obtained the patient was brought to the OR and laid in the suprine position, At that point the patient was anesthetized per anesthesia protocols and prepped and draped in usual sterile fashion. A timeout was performed reconfirming the patient procedure and laterality. A 22 [place] cystoscope was advanced easily into the urinary bladder. He had a stent emanating from his left UO. A sensor wire was placed next to this up into the kidney where a large 1.5 cm radiopaque stone was seen at the UPJ. A second wire was placed and his old stent was removed. A 05/05 38 cm ureteral access sheath was placed up into the proximal ureter. Using a flexible ureteroscope up into the kidney, his large stone was seen. Using a laser at power 1.2 and a rate of 12 we dusted the stone into small pieces. No further stone could be seen on fluoroscopy. A small portion of stone was grasped and sent for analysis. His ureter was cleared under direct visualization. A 6 [place] 28 cm double-J ureteral stent was placed with good curling noted in the kidney and good curling noted in the bladder. His bladder was emptied and this concluded t he procedure. All counts were correct. The patient was brought to the PACU without further incident
--- NOTE | 2023-01-31 10:32 | ANESTHESIA POST OP EVALUATION ---
Anesthesia Post Eval - Post Anesthesia Eval Vitals: Last Vital Signs Temp 36.4 C L 01/31/23 10:15 Pulse 77 01/31/23 10:24 Resp 16 01/31/23 10:24 BP 130/69 01/31/23 10:24 Pulse Ox 97 01/31/23 10:24 O2 Flow Rate CV Function Including HR & BP: Stable Pain Control: Satisfactory Nausea & Vomiting: Negative Mental Status: Baseline Respiratory Status: Airway Patent Hydration Status: Satisfactory Anesthesia Complications: None
[2023-01-31 10:49] VITALS: BP 120/73; O2SAT 95
--- NOTE | 2023-01-31 13:27 | XRAY Report ---
PROCEDURE: OR C-Arm Procedure INDICATIONS: URETEROSCOPY, LASER LITHOTRIPSY AND STENT FLUORO TIME: 0.2 MIN TECHNIQUE: Intraoperative spot image was performed. COMPARISON: None. FINDINGS: There is a ureteral stent seen within the proximal left collecting system. IMPRESSION: Ureteral stent placement. Reviewed by: Johnnie Linn MD on 01/31/2023 1:25 PM PDT Approved by: Johnnie Linn MD on 01/31/2023 1:25 PM PDT Station ID: [id number]
== END 2023-01-31 07:33 | disposition home or self-care (01) ==
LOC: SDS 07:32
PROVIDERS: ATTEND Urology
PROC: 0TC18ZZ Extirpation of Matter from Left Kidney, Via Natural or Artificial Opening Endoscopic (ICD-10-PCS; principal; 2023-01-31 08:45)
DX: N20.0 Calculus of kidney (principal); I10 Essential (primary) hypertension; Z87.891 Personal history of nicotine dependence
CPT/HCPCS: 52356; C1758; J7120

== ENCOUNTER 2023-04-04 08:00 | Outpatient (CLI) | payer MEDICARE, OTHER | END 2023-04-04 23:59 | disposition home or self-care (01) | LOC: LAB.S 08:00 | PROVIDERS: ATTEND Physician Assistant Medical | DX: N39.0 Urinary tract infection, site not specified (principal) | CPT/HCPCS: 87077; 87086; 87181 ==

== ENCOUNTER 2023-04-21 08:00 | Outpatient (CLI) | payer MEDICARE, OTHER | END 2023-04-21 23:59 | disposition home or self-care (01) | LOC: LAB 08:00 | PROVIDERS: ATTEND Urology | DX: R30.0 Dysuria (principal) | CPT/HCPCS: 87077; 87086; 87181 ==

== ENCOUNTER 2023-05-25 08:00 | Outpatient (CLI) | payer MEDICARE, OTHER ==
--- NOTE | 2023-05-25 20:58 | XRAY Report ---
PROCEDURE: Abdomen 1 View (KUB) INDICATIONS: KIDNEY STONES TECHNIQUE: AP view of the abdomen COMPARISON: CT KUB on December 03, 2022. FINDINGS: Soft tissues: Multiple calcifications project over the left flank with a small cluster of 3 stones me asuring up to 9 mm in the left lower pole as seen on CT KUB dated November 23, 2022 (series 3, image [id number] ). No radiographic evidence of a staghorn calculus. Nonobstructive bowel gas pattern. Bones: No acute fracture. Moderate to severe degenerative changes of the lumbar spine, worse at L5-S1 . Dextroconvex curvature of the lumbar spine. IMPRESSION: Multiple calcifications project over the left flank compatible with nephroliths as seen on CT KUB denise ed November 23, 2022. No radiographic evidence of a staghorn calculus. Reviewed by: Cheryl Watts MD on 05/25/2023 8:57 PM PST Approved by: Cheryl Watts MD on 05/25/2023 8:57 PM PST Station ID: [id number]
== END 2023-05-25 23:59 | disposition home or self-care (01) ==
LOC: DI.WOS 08:00
PROVIDERS: ATTEND Urology
DX: Z87.442 Personal history of urinary calculi (principal)

== ENCOUNTER 2023-08-08 08:00 | Outpatient (CLI) | payer MEDICARE, OTHER ==
[2023-08-08 18:30] LABS: BILIRUBIN,URINE NEGATIVE (NEGATIVE); GLUCOSE, URINE (UA) NEGATIVE (NEGATIVE); KETONES,URINE (UA) NEGATIVE (NEGATIVE); LEUKOCYTE ESTERASE, URINE SMALL (NEGATIVE); NITRITE,URINE NEGATIVE (NEGATIVE); OCCULT BLOOD,URINE LARGE (NEGATIVE); PROTEIN,URINE NEGATIVE (NEGATIVE); UROBILINOGEN,URINE 0.2 (NORMAL) E.U./dL (NORMAL)
[2023-08-08 18:47] LABS: BACTERIA,URINE Rare /HPF (None Seen); CLARITY,URINE CLOUDY (CLEAR); RBC,URINE TNTC /HPF (0-5); SQUAMOUS EPITHELIAL CELL,UR FEW Squamous (<= Few); WBC CLUMPS,URINE PRESENT
== END 2023-08-08 23:59 | disposition home or self-care (01) ==
LOC: LAB 08:00
PROVIDERS: ATTEND Urology
DX: N39.0 Urinary tract infection, site not specified (principal)
CPT/HCPCS: 81001; 87086

== ENCOUNTER 2023-09-05 11:51 | Outpatient (CLI) | payer MEDICARE, OTHER ==
[2023-09-05 12:18] LABS: CREATININE 0.7 mg/dL (0.6-1.3)
[2023-09-05] MEDS: GADOTERATE MEGLUMINE 10 MMOL/20 ML VIAL IVP ONE (17:49)
--- NOTE | 2023-09-06 15:36 | MRI Report ---
PROCEDURE: Pelvis W/WO INDICATIONS: PROSTATITIS CONTRAST: clariscan 15.8ml TECHNIQUE: Coronal ultra fast SE, axial T1 FSE with fat saturation, 3-plane nonbreath-hold T2 FSE. After the ad ministration of contrast, dynamic axial, delayed axial and coronal ultra fast GE or 2-D spoiled GE wi th fat saturation through the pelvis. Optional diffusion weighted imaging and ADC may be performed. COMPARISON: Correlation made to CT abdomen and pelvis 12/03/2022 FINDINGS: Image quality: Diffusion weighted and dynamic contrast enhanced images are diagnostic. Prostate: Gland size is 5.6 x 4.3 x 5.3 cm; ellipsoid gland volume is 66.4 mL. Given recent PSA of 5.6, PSA density is 0.08. There is transition zone hypertrophy with compression of the peripheral zon e. Focal median lobe hypertrophy indenting on the base of the urinary bladder. There are multiple indistinct areas in the transition zone which demonstrate focal restricted diffusi on without uniquely hypointense T2 signal. Given lack of T2 hypointensity, these are all PI-RADS 2 le sions. There are no focal T2 hyperintensities in the prostate gland is suggest prostatic inflammation or abs cess given history of prostatitis. There is no suspicious enhancement. Genitourinary system: Bladder wall thickness is normal. Distal ureters are non distended. Moderate- sized finely septated right hydrocele. Bowel and peritoneum: No pathologic free pelvic fluid. Inferior colon and small bowel loops are nor mal in caliber. Nodes and vessels: No pelvic or inguinal adenopathy by size criteria. Iliac vessels are normal in c aliber. Soft tissues: No inguinal hernias. Bones: Bone marrow demonstrates normal overall signal. No suspicious bony lesions. IMPRESSION: Prostatomegaly with probable benign prostatic hypertrophy. Several focal PI-RADS 2 lesions in the transition zone. Correlate with PSA trend. If levels continue to trend up, repeat imaging is recommended. No MR changes of acute prostatitis. Reviewed by: Darya De MD on 09/06/2023 3:35 PM PDT Approved by: Darya De MD on 09/06/2023 3:35 PM PDT Station ID: [id number]
== END 2023-09-05 11:52 | disposition home or self-care (01) ==
LOC: LAB 11:51
PROVIDERS: ATTEND Urology
DX: N39.0 Urinary tract infection, site not specified (principal); R93.89 Abnormal findings on diagnostic imaging of other specified body structures
CPT/HCPCS: 36415; 82565

== ENCOUNTER 2023-10-19 08:00 | Outpatient (CLI) | payer MEDICARE, OTHER | END 2023-10-19 23:59 | disposition home or self-care (01) | LOC: LAB.S 08:00 | PROVIDERS: ATTEND Registered Nurse | DX: N39.0 Urinary tract infection, site not specified (principal) | CPT/HCPCS: 87077; 87086; 87181 ==

== ENCOUNTER 2023-11-29 08:00 | Outpatient (CLI) | payer MEDICARE, OTHER ==
[2023-11-30 13:36] LABS: BILIRUBIN,URINE NEGATIVE (NEGATIVE); GLUCOSE, URINE (UA) NEGATIVE (NEGATIVE); KETONES,URINE (UA) NEGATIVE (NEGATIVE); LEUKOCYTE ESTERASE, URINE MODERATE (NEGATIVE); NITRITE,URINE NEGATIVE (NEGATIVE); OCCULT BLOOD,URINE LARGE (NEGATIVE); PROTEIN,URINE 30 mg/dL (NEGATIVE); UROBILINOGEN,URINE 0.2 (NORMAL) E.U./dL (NORMAL)
[2023-11-30 13:41] LABS: CLARITY,URINE CLOUDY (CLEAR)
[2023-11-30 13:56] LABS: BACTERIA,URINE Many /HPF (None Seen); SQUAMOUS EPITHELIAL CELL,UR RARE Squamous (<= Few); WBC,URINE >25 /HPF (0-3)
== END 2023-11-29 23:59 | disposition home or self-care (01) ==
LOC: LAB 08:00
PROVIDERS: ATTEND Urology
DX: N39.0 Urinary tract infection, site not specified (principal)
CPT/HCPCS: 81001; 87077; 87086; 87181

== ENCOUNTER 2024-01-11 08:00 | Outpatient (CLI) | payer MEDICARE, OTHER | END 2024-01-11 23:59 | disposition home or self-care (01) | LOC: LAB 08:00 | PROVIDERS: ATTEND Urology | DX: R30.0 Dysuria (principal) | CPT/HCPCS: 87077; 87086; 87181 ==